=== PATIENT | female | born 2005 | race Caucasian/White ===

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

== ENCOUNTER 2025-09-26 14:28 | Outpatient (CLI) | payer BC, SELFPAY ==
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
--- OUTSIDE RECORDS SUMMARY | 2025-08-07 10:45 | XMS_ITS | Encounter Summary ---
Author Organization [facility] Address [address] [place] [address] Care Team Providers Care Relish Maker Name Role Phone Hugh Galicia Primary Care Provider Encounter Details Date Type Department Care Team (Late Contact Info) Description 08/07/2025 11:45 AM EDT Lab [facility] [address] [facility] [address] [place] [address] Routine general medical examination at a health care facility; Fatigue, unspecified type; Pain in both knees, unspecified chronicity; Family history of autoimmune disorder Social History Tobacco Use Types Packs/Day Years Used Date Smoking Tobacco: Never Smokeless Tobacco: Never Alcohol Use Standard Drinks/Week Comments Never 0 [...] on file documented as of this encounter Functional Status documented as of this encounter Plan of Treatment Upcoming Encounters Date Type Department Care Team (Late st Contact Info) Description 12/21/2025 10:00 AM EST Office Visit [facility]YN [address] [facility] [address] [place] [address] Kirkland, Amy, ROLL WINDER [address] [facility] [address] [place] [address] documented as of this encounter Procedures Procedure Name Priority Date/Time Associated Diagnosis Comments CBC WITH AUTO DIFFERENTIAL Routine 08/07/2025 11:54 AM EDT Routine general medical examination at a health care facility ALVERTO BY IFA, REFLEX TO TITER AND PATTERN Routine 08/07/2025 11:54 AM EDT Pain in both knees, unspecified chronicity Family history of autoimmune disorder SEDIMENTATION RATE Routine 08/07/2025 11 :54 AM EDT Pain in both knees, unspecified chronicity Family history of autoimmune disorder CBC AND DIFFERENTIAL Routine 08/07/2025 11:54 AM EDT Routine general medical examination at a health care facility RHEUMATOID FACTOR Routine 08/07/2025 11: 54 AM EDT Pain in both knees, unspecified chronicity Family history of autoimmune disorder C-REACTIVE PROTEIN Routine 08/07/2025 11 :54 AM EDT Pain in both knees, unspecified chronicity Family history of autoimmune disorder TSH Routine 08/07/2025 11:54 AM EDT Fatigue, unspecified type T4, FREE Routine 08/07/2025 11:54 AM EDT Fatigue, unspecified type LIPID PANEL Routine 08/07/2025 11:54 AM EDT Routine general medical examination at a health care facility COMPREHENSIVE METABOLIC PANEL Routine 08/07/2025 11:54 AM EDT Routine general medical examination at a health care facility documented in this encounter Results * (ABNORMAL) CBC Auto Differential (08/07/2025 11:54 AM EDT) [facility] WBC 6.87 3.40 - 10.80 10*3/mm3 08/08/2025 12:24 AM [facility] RBC 4.45 3.77 - 5.28 10*6/mm3 08/08/2025 12:24 AM [facility] Hemoglobin 13.0 12.0 - 15.9 g/dL 08/08/2025 12:24 AM [facility] Hematocrit 39.6 34.0 - 46.6 % 08/08/2025 12:24 AM [facility] MCV 89.0 79.0 - 97.0 fL 08/08/2025 12:24 AM [facility] MCH 29.2 26.6 - 33.0 pg 08/08/2025 12:24 AM [facility] MCHC 32.8 31.5 - 35.7 g/dL 08/08/2025 12:24 AM [facility] RDW 11.7(L) 12.3 - 15.4 % 08/08/2025 12:24 AM [facility] RDW-SD 38.0 37.0 - 54.0 fl 08/08/2025 12:24 AM [facility] MPV 11.1 6.0 - 12.0 fL 08/08/2025 12:24 AM [facility] Platelets 291 140 - 450 10*3/mm3 08/08/2025 12:24 AM [facility] Neutrophil % 54.4 42.7 - 76.0 % 08/08/2025 12:24 AM [facility] Lymphocyte % 31.0 19.6 - 45.3 % 08/08/2025 12:24 AM [facility] Monocyte % 11.6 5.0 - 12.0 % 08/08/2025 12:24 AM [facility] Eosinophil % 2.3 0.3 - 6.2 % 08/08/2025 12:24 AM [facility] Basophil % 0.4 0.0 - 1.5 % 08/08/2025 12:24 AM EDT [facility] Immature Grans % 0.3 0.0 - 0.5 % 08/08/2025 12:24 AM EDT [facility] Neutrophils, Absolute 3.73 1.70 - 7.00 10*3/mm3 08/08/2025 12:24 AM EDT [facility] Lymphocytes, Absolute 2.13 0.70 - 3.10 10*3/mm3 08/08/2025 12:24 AM EDT [facility] Monocytes, Absolute 0.80 0.10 - 0.90 10*3/mm3 08/08/2025 12:24 AM EDT [facility] Eosinophils, Absolute 0.16 0.00 - 0.40 10*3/mm3 08/08/2025 12:24 AM EDT [facility] Basophils, Absolute 0.03 0.00 - 0.20 10*3/mm3 08/08/2025 12:24 AM EDT [facility] Immature Grans, Absolute 0.02 0.00 - 0.05 10*3/mm3 08/08/2025 12:24 AM T [facility] nRBC 0.0 0.0 - 0.2 /100 WBC 08/08/2025 12:24 AM T [facility] Blood Structure of right upper limb / Unknown Venipuncture / Unknown 08/07/2025 11:54 AM EDT 08/07/2025 11:54 AM EDT us Hugh FLORES LAB BLOOD ORDERABLES Fi nal Result [facility]
[address] [place] [address], * C-reactive Protein (08/07/2025 11:54 AM EDT) C-Reactive Protein <0.30 0.00 - 0.50 mg/dL 08/08/2025 12:11 AM [facility] Blood Structure of right upper limb / Unknown Venipuncture / Unknown 08/07/2025 11:54 AM EDT 08/07/2025 11:54 AM EDT Hugh Cachorro [facility] LAB BLOOD ORDERABLES Fi nal Result Performing Organization Address City/[facility] Co de Phone Number [facility]
[address] [place] [address], * Sedimentation Rate (08/07/2025 11:54 AM EDT) Pathologist [facility] Sed Rate 7 0 - 20 mm/hr 08/08/2025 12:32 AM EDT [facility] Blood Structure of right upper limb / Unknown Venipuncture / Unknown 08/07/2025 11:54 AM EDT 08/07/2025 11:54 AM EDT Hugh Cachorro [facility] LAB BLOOD ORDERABLES Fi nal Result Performing Organization Address [facility] Co de Phone Number [facility]
[address] [place] [address], [place] [phone] * Rheumatoid Factor (08/07/2025 11:54 AM EDT) [facility] Rheumatoid Factor Quantitative <10.0 0.0 - 14.0 IU/mL 08/08/2025 12:11 AM EDT [facility] Blood Structure of right upper limb / Unknown Venipuncture / Unknown 08/07/2025 11:54 AM EDT 08/07/2025 11:54 AM EDT [facility] LAB BLOOD ORDERABLES Fi nal Result Performing Organization Address City/[facility] Co de Phone Number [facility]
[address] [place] [address], [place] [phone] * ALVERTO by IFA, Reflex to Titer [...] - 08/09/2025 11:11 AM EDT Performed at: 01 [address] [id number] Oiler Bander: Juan Oliveira PhD, Phone: [phone] us Hugh FLORES LAB BLOOD ORDERABLES Fi nal Result [facility] [address] [place] [id number], * Comprehensive Metabolic Panel (08/07/2025 11:54 AM EDT) Pathologist [facility] Glucose 79 65 - 99 mg/dL 08/08/2025 12:11 AM EDT [facility] BUN 11.0 6.0 - 20.0 mg/dL 08/08/2025 12:11 AM EDT [facility] Creatinine 0.81 0.57 - 1.00 mg/dL 08/08/2025 12:11 AM EDT [facility] Sodium 139 136 - 145 mmol/L 08/08/2025 12:11 AM EDT [facility] Potassium 4.2 3.5 - 5.2 mmol/L 08/08/2025 12:11 AM EDT [facility] Chloride 104 98 - 107 mmol/L 08/08/2025 12:11 AM EDT [facility] CO2 22.2 22.0 - 29.0 mmol/L 08/08/2025 12:11 AM EDT [facility] Calcium 9.5 8.6 - 10.5 mg/dL 08/08/2025 12:11 AM [facility] Total Protein 7.3 6.0 - 8.5 g/dL 08/08/2025 12:11 AM [facility] Albumin 4.4 3.5 - 5.2 g/dL 08/08/2025 12:11 AM [facility] ALT (SGPT) 19 1 - 33 U/L 08/08/2025 12:11 AM [facility] AST (SGOT) 20 1 - 32 U/L 08/08/2025 12:11 AM [facility] Alkaline Phosphatase 100 39 - 117 U/L 08/08/2025 12:11 AM [facility] Total Bilirubin 0.4 0.0 - 1.2 mg/dL 08/08/2025 12:11 AM [facility] Globulin 2.9 gm/dL 08/08/2025 12:11 AM [facility] A/G Ratio 1.5 g/dL 08/08/2025 12:11 AM [facility] BUN/Creatinine Ratio 13.6 7.0 - 25.0 08/08/2025 12:11 AM [facility] Anion Gap 12.8 5.0 - 15.0 mmol/L 08/08/2025 12:11 AM [facility] eGFR 107.4 >60.0 mL/min/1.7 3 08/08/2025 12:11 AM [facility] Blood Structure of right upper limb / Unknown Venipuncture / Unknown 08/07/2025 11:54 AM EDT 08/07/2025 11:54 AM [facility] - 08/08/2025 12:11 AM [facility] GFR Categories in Chronic Kidney Disease (CKD) [...] not include race as a factor Hugh Ivory Grayson MA LAB BLOOD ORDERABLES Fi nal Result Performing Organization Address City/[facility]/ZIP Co de Phone Number [facility]
[address] [place] [address], * T4, Free (08/07/2025 11:54 AM EDT) Free T4 1.32 0.92 - 1.68 ng/dL 08/08/2025 12:13 AM EDT [facility] Blood Structure of right upper limb / Unknown Venipuncture / Unknown 08/07/2025 11:54 AM EDT 08/07/2025 11:54 AM EDT Hugh Ivory Galicia MA LAB BLOOD ORDERABLES Fi nal Result Performing Organization Address City/[facility]/ZIP Co de Phone Number [facility]
[address] [place] [address], * TSH (08/07/2025 11:54 AM EDT) TSH 1.110 0.270 - 4.200 uIU/mL 08/08/2025 12:13 AM EDT [facility] Blood Structure of right upper limb / Unknown Venipuncture / Unknown 08/07/2025 11:54 AM EDT 08/07/2025 11:54 AM EDT Hugh Ivory Galicia MA LAB BLOOD ORDERABLES Fi nal Result [facility]
[address] [place] [address], * Lipid Panel (08/07/2025 11:54 AM EDT) Total Cholesterol 147 0 - 200 mg/dL 08/08/2025 12:11 AM EDT [facility] Triglycerides 38 0 - 150 mg/dL 08/08/2025 12:11 AM EDT [facility] HDL Cholesterol 57 40 - 60 mg/dL 08/08/2025 12:11 AM EDT [facility] LDL Cholesterol 81 0 - 100 mg/dL 08/08/2025 12:11 AM EDT [facility] VLDL Cholesterol 9 5 - 40 mg/dL 08/08/2025 12:11 AM EDT [facility] LDL/HDL Ratio 1.45 08/08/2025 12:11 AM T [facility] Blood Structure of right upper limb / Unknown Venipuncture / Unknown 08/07/2025 11:54 AM EDT 08/07/2025 11:54 AM EDT Narrative [facility] - 08/08/2025 12:11 AM EDT Cholesterol [...] FLORES LAB BLOOD ORDERABLES Fi nal Result [facility]
[address] [place] [address], documented in this encounter Visit Diagnoses Diagnosis Routine general medical examination at a health care facility Fatigue, unspecified type Pain in both knees, unspecified chronicity Family history of autoimmune disorder documented in this encounter Care Teams Relish Maker Relationship Specialty Start Date End Date Hugh Galicia PA [address] [facility] [address] [place] [address] PCP - General Family Medicine 08/07/25 documented as of this encounter
--- OUTSIDE RECORDS SUMMARY | 2025-08-21 15:30 | XMS_ITS | Encounter Summary ---
Author Organization [facility] Address [address] [place] [address] Care Team Providers Care Hog Driver Name Role Phone Hugh Galicia Primary Care Provider Reason for Referral * Consultation (Routine) - Closed Specialty Diagnoses / Procedures Referred By Contact Referred To Contact Orthopedic Surgery Diagnoses Chronic pain of right knee Hugh Galicia PA [address] [facility] [address] [place] [address] Phone: tel: fax: Michael Roque MD [address] [facility] [address] [place] [address] Phone: tel: fax: Referral ID Status Reason Start Date Expiration Date V isits Requested Visits Authorized [id number] Closed Specialty Services Required 08/21/2025 11/20/2026 1 1 Reason for Visit * Reason Comments Anxiety Started Lexapro 5mg two weeks ago but stopped taking d/t side effects. She is open to trying another medication. Behavioral health is booked and they couldn't schedule her an appointment. 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 Encounter Details Date Type Department Care Team (Late st Contact Info) Description 08/21/2025 4:30 PM EDT Office Visit [facility] [address] [facility] [address] [place] [address] Hugh Galicia PA [address] [facility] [address] [place] [address] Anxiety (Primary Dx); Chronic pain of both knees; Menstrual disorder Social History Tobacco Use Types Packs/Day [...] Sign Reading Time Taken Comments Blood Pressure 118/76 08/21/2025 4:34 PM EDT Pulse 89 08/21/2025 4:34 PM EDT Temperature - - Respiratory Rate 14 08/21/2025 4:34 PM EDT Oxygen Saturation 100% 08/21/2025 4:34 PM EDT Inhaled Oxygen Concentration - - Weight 60.1 kg (132 lb 6.4 oz) 08/21/2025 4:34 PM EDT Height 154.9 cm (5' 0.98 ) 08/21/2025 4:34 PM ED T Body Mass Index 25.03 08/21/2025 4:34 PM EDT documented in this encounter Progress Notes * Hugh Galicia PA - 08/21/2025 4:30 PM EDT Latia Alvarez is a 19 y.o. female Anxiety (Started Lexapro 5mg two weeks ago but stopped taking d/t side effects. She is open to trying another medication. Behavioral health is booked and they couldn't schedule her an appointment. ) and Menorrhagia ([employer]OL[employer] appt isn't until December 21, 2025) History of Present Illness History of Present Illness The patient is a 19-year-old female who presents for follow-up of lab work, anxiety, and joint issues. She reports experiencing side effects from Lexapro, including a sensation of heat and itchiness in her chest. She has not previously tried Zoloft. The patient has a history of joint issues, particularly with her knees, which have been prone to subluxations of her kneecap. She was previously advised to undergo surgery due to shallow joints but declined as she was very young at the time. She reports frequent subluxation of her kneecap, especially in her left knee, and has learned to adjust her movements to prevent it from going out of place. She started her menstrual cycle yesterday and experienced vomiting. She has scheduled an appointment with a servicer at [facility], with the earliest available date being 08/2025. GYNECOLOGICAL HISTORY: - Last Menstrual Period: 08/20/2025 - Menstrual Pain: Yes The following portions of the patient's history were reviewed and updated as appropriate: allergies, current medications, past social history and problem list Review of Systems Constitutional: Positive for fatigue. Negative for unexpected weight change. Respiratory: Negative for cough, chest tightness and shortness of breath. Cardiovascular: Positive for chest pain. Negative for palpitations and leg swelling. Gastrointestinal: Negative for nausea. Skin: Negative for color change and rash. Neurological: Positive for headaches. Negative for dizziness, syncope and weakness. Objective Vitals: 08/21/25 1634 BP: 118/76 Pulse: 89 Resp: 14 SpO2: 100% Physical Exam Vitals and nursing note reviewed. Constitutional: General: She is not in acute distress. Appearance: Normal appearance. She is well-developed. She is not ill-appearing, toxic-appearing or diaphoretic. HENT: Head: Normocephalic and atraumatic. Right Ear: External ear normal. Left Ear: External ear normal. Eyes: Conjunctiva/sclera: Conjunctivae normal. Pupils: Pupils are equal, round, and reactive to light. Neck: Thyroid: No thyromegaly. Vascular: No carotid bruit or JVD. Cardiovascular: Rate and Rhythm: Normal rate and regular rhythm. Pulses: Normal pulses. Heart sounds: Normal heart sounds. No murmur heard. Pulmonary: Effort: Pulmonary effort is normal. No respiratory distress. Breath sounds: Normal breath sounds. Abdominal: General: Bowel sounds are normal. Palpations: Abdomen is soft. There is no mass. Tenderness: There is no abdominal tenderness. Musculoskeletal: General: No swelling. Normal range of motion. Cervical back: Normal range of motion and neck supple. Lymphadenopathy: Cervical: No cervical adenopathy. Skin: General: Skin is warm and dry. Findings: No lesion or rash. Neurological: Mental Status: She is alert and oriented to person, place, and time. Cranial Nerves: No cranial nerve deficit. Sensory: No sensory deficit. Motor: No weakness. Coordination: Coordination normal. Gait: Gait normal. Deep Tendon Reflexes: Reflexes are normal and symmetric. Psychiatric: Mood and Affect: Mood normal. Behavior: Behavior normal. Thought Content: Thought content normal. Judgment: Judgment normal. Physical Exam General: Pleasant, no acute distress Assessment & Plan Assessment & Plan 1. Anxiety: - She experienced side effects with Lexapro, including chest heat and itchiness. - Blood work results are normal, ruling out autoimmune disorders for now. - Anxiety symptoms may be contributing to her somatic complaints, though this is not certain. - A low dose of sertraline 25 mg will be initiated, with the option to increase the dosage if necessary. 2. Recurrent patellar subluxation: - She reports recurrent dislocations of her left kneecap, with the left knee being more affected than the right. - Referral to Dr. Roque, an internet specialist, will be made for further evaluation and potential testing. 3. Menstrual disorder: - She started her menstrual cycle yesterday and experienced vomiting. - She has scheduled an appointment with a servicer at [facility], with the earliest available date being 08/2025. - If she is unable to secure an appointment with a servicer at [facility], she will inform us so that we can expedite the process. Diagnoses and all orders for this visit: 1. Anxiety (Primary) 2. Chronic pain of both knees - Ambulatory Referral to Orthopedic Surgery 3. Menstrual disorder Other orders - sertraline (Zoloft) 25 MG tablet; Take 1 tablet by mouth Daily. Dispense: 30 tablet; Refill: 1 I spent 15 minutes in patient care: Reviewing records prior to the visit, examining the patient, entering orders and documentation Part of this note may be an electronic excellence coach/translation of spoken language to printed textusing the [employer] System. Patient or patient territory account representative verbalized consent for the use of Ambient Listening during the visit with MARK Casanova for chart documentation. 08/21/2025 16:26 EDT documented in this encounter Plan of Treatment Upcoming Encounters Date Type Department Care Team (Late st Contact Info) Description 12/21/2025 10:00 AM EST Office Visit [facility] [address] [facility] [address] [place] [address] Delia Kirkland APRN [address] [place] [address] Scheduled Referrals Name Type Priority Associated Diagnoses Order Schedule Ambulatory Referral to Orthopedic Surgery Outpatient Referral Routine Chronic pain of both knees Ordered: 08/21/2025 documented as of this encounter Visit Diagnoses Diagnosis Anxiety- Primary Anxiety state, unspecified Chronic pain of both knees Menstrual disorder documented in this encounter Care Teams Hog Driver Relationship Specialty Start Date End Date Hugh Galicia PA [address] [facility] [address] [place] [address] PCP - General Family Medicine 08/07/25 documented as of this encounter
--- OUTSIDE RECORDS SUMMARY | 2025-08-30 08:30 | XMS_ITS | Encounter Summary ---
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 Located at [address] [place] [address] in [place]. You can contact them at . Reason for Visit * Reason Comments Pain Pain * Consultation (Routine) - Closed Specialty Diagnoses / Procedures Referred By Contact Referred To Contact Orthopedic Surgery Diagnoses Chronic pain of right knee Hugh Galicia PA [address] [facility] [address] [place] [address] Phone: tel: fax: Michael Roque MD [address] [facility] [address] [place] [address] Phone: tel: fax: Referral ID Status Reason Start Date Expiration Date V isits Requested Visits Authorized [id number] Closed Specialty Services Required 08/21/2025 11/20/2026 1 1 Encounter Details Date Type Department Care Team (Late st Contact Info) Description 08/30/2025 8:30 AM EST Office Visit [facility]TH[facility] & SPORTS MEDICINE [address] [facility] [address] [place] [address] Michael Roque MD [address] [facility] [address] [place], [place] [id number] Pain in both knees, unspecified chronicity (Primary Dx); Dysplasia of trochlea of femur; 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 Social History Tobacco Use Types Packs/Day Years [...] Sign Reading Time Taken Comments Blood Pressure 132/64 08/30/2025 8:27 AM EST Pulse - - Temperature - - Respiratory Rate - - Oxygen Saturation - - Inhaled Oxygen Concentration - - Weight 58.3 kg (128 lb 8 oz) 08/30/2025 8:27 AM EST Height 160 cm (5' 3 ) 08/30/2025 8:27 AM EST Body Mass Index 22.76 08/30/2025 8:27 AM EST documented in this encounter Progress Notes * Michael Roque MD - 08/30/2025 8:30 AM EST [facility] Office Visit Office Visit Date: 08/30/2025 Patient Name: Adilene Alvarez Date of : 2005 Referring Physician: Hugh Galicia PA Chief Complaint: Chief Complaint Patient presents with Right Knee - Pain Left Knee - Pain History of Present Illness: Adilene Alvarez is a 19 y.o. female who presents with bilateral knee pain for 4 year(s). Onset playing sports. Pain is localized to the entire knee (globally) and is a 6/10 on the pain scale. Pain is described as aching, throbbing, and stabbing. Associated symptoms include pain, swelling, popping, stiffness, and giving way/buckling. The pain is worse with walking, standing, climbing stairs, sleeping, and lying on affected side; heat, pain medication and/or NSAID, and elevating the extremity make it better. Previous treatments have included: bracing, NSAIDS, and physical therapy since symptom onset. Although some transient relief was reported with these interventions, these conservative measures have failed and symptoms have persisted. The patient is limited in daily activities and has had asignificant decrease in quality of life as a result. She denies fevers, chills, or constitutional symptoms. Subjective Review of Systems: Review of Systems Constitutional: Negative for chills, fever, unexpected weight gain and unexpected weight loss. HENT: Negative for congestion, postnasal drip and rhinorrhea. Eyes: Negative for blurred vision. Respiratory: Negative for shortness of breath. Cardiovascular: Negative for leg swelling. Gastrointestinal: Negative for abdominal pain, nausea and vomiting. Genitourinary: Negative for difficulty urinating. Musculoskeletal: Positive for arthralgias. Negative for gait problem, joint swelling and myalgias. Skin: Negative for skin lesions and wound. Neurological: Negative for dizziness, weakness, light-headedness and numbness. Hematological: Does not bruise/bleed easily. Psychiatric/Behavioral: Negative for depressed mood. I have reviewed the following portions of the patient's history:History of Present Illness and review of systems. Past Medical History: Past Medical History: Diagnosis Date Dislocation, shoulder Knee sprain Low back strain Stress fracture Past Surgical History: No past surgical history on file. Family History: Family History Problem Relation Name Age of Onset Depression Mother Yakelin santo Hypertension Mother Yakelin santo Anxiety disorder Mother Yakelin santo 20 Mental illness Mother Yakelin santo Depression Father Kenny Alvarez Diabetes Father Kenny Alvarez Anxiety disorder Father Kenny Alvarez 40 Arthritis Father Kenny Alvarez 16 Mental illness Father Kenny Alvarez Migraine Father Kenny Alvarez Hypertension Brother Alex Voss Hyperlipidemia Brother Alex Voss Anxiety disorder Brother Alex Voss 16 Asthma Brother [place] Antonio 1 Hypertension Brother Domenic Voss Asthma Brother Domenic Voss 2 Diabetes Maternal Grandmother Leigh Ann Santo Hypertension Maternal Grandmother Leigh Ann Santo Hyperlipidemia Maternal Grandmother Leigh Ann Santo Arthritis Maternal Grandmother Leigh Ann Santo Cancer Maternal Grandfather Sarath Santo Hypertension Maternal Grandfather Sarath Santo Stroke Maternal Grandfather Sarath Santo Thyroid disease Maternal Grandfather Sarath Santo Hyperlipidemia Maternal Grandfather Sarath Santo Arthritis Maternal Grandfather Sarath Santo Hearing loss Maternal Grandfather Sarath Santo Vision loss Maternal Grandfather Sarath Santo Cancer Paternal Grandmother Ragini Alvarez Diabetes Paternal Grandmother Ragini Alvarez Arthritis Paternal Grandmother Ragini Alvarez Vision loss Paternal Grandmother Ragini Alvarez Social History: Social History Socioeconomic History Marital status: Single Tobacco Use Smoking status: Never Smokeless tobacco: Never Vaping Use Vaping status: Never Used Substance and Sexual Activity Alcohol use: Never Drug use: Never Sexual activity: Yes Partners: Male Medications: Current Outpatient Medications: sertraline (Zoloft) 25 MG tablet, Take 1 tablet by mouth Daily., Disp: 30 tablet, Rfl: 1 Allergies: Allergies Allergen Reactions Lexapro [Escitalopram] Other (See Comments) Chest felt weird, itchy, didn't feel right I reviewed the patient's chief complaint, history of present illness, review of systems, past medical history, surgical history, family history, social history, medications and allergy list. Objective Vital Signs: Vitals: 08/30/25 0827 BP: 132/64 Weight: 58.3 kg (128 lb 8 oz) Height: 160 cm (63 ) Body mass index is 22.76 kg/m??. Pediatric BMI = 62 %ile (Z= 0.30) based on CDC (Girls, 2-20 Years) BMI-for-age based on BMI available on 08/30/2025.. BMI is >= 25 and <30. (Overweight) The following options were offered after discussion;: exercise counseling/recommendations and nutrition counseling/recommendations Ortho Exam: Gait and Station: Appearance: normal gait, no limp, and ambulates with no assitive devices. Cardiovascular System: Arterial Pulses Right: dorsalis pedis normal. Arterial Pulses Left: dorsalispedis normal. Edema Right: no edema. Edema Left: no edema. Varicosities Right: capillary refill test normal. Varicosities Left: capillary refill test normal. Lymph Nodes: Inspection/Palpation Right: no popliteal LAD. Inspection/Palpation Left: no popliteal LAD. Knees: Inspection Right: no deformity, induration, warmth, erythema, or swelling and normal axial alignment. Inspection Left: no deformity, induration, warmth, erythema, or swelling and normal axial alignment. Bony Palpation Right: tenderness of the lateral patellar facet, the medial patellar facet, and the medial joint line. Soft Tissue Palpation Right: no tenderness of the quadriceps tendon or the medial collateral ligament and tenderness of the medial patellar retinaculum; tender over medialsyovium. Soft Tissue Palpation Left: no tenderness of the quadriceps tendon. Active Range of MotionRight: no crepitus or pain with motion and normal, flexion normal, and extension normal. Active Range of Motion Left: no crepitus or pain with motion and normal, flexion normal, and extension normal.Stability Right: no laxity, subluxation, or ligamentous instability and pivot shift test negative and Annalise test negative. Stability Left: no laxity, subluxation, or ligamentous instability and pivot shift test negative and Annalise test negative. Special Tests Right: Gagandeep's test negative and Apley's compression test negative. Special Tests Left: Gagandeep's test negative and Apley's compression test negative. Strength Right: no hamstring weakness and quadriceps weakness. Strength Left: no hamstring weakness or quadriceps weakness. Extensor Mechanism:: Extensor Mechanism Right: patellar tracking apprehension and passive subluxation (J tracking), patella posture Q angle extended 15 and apprehension positive, and prepatellar normal. Extensor Mechanism Left: prepatellar normal and apprehension negative. Skin: Right Lower Extremity: normal. Left Lower Extremity: normal. Neurologic: Sensation on the Right: L2 normal, L3 normal, L4 normal, L5 normal, and S1 normal. Sensation on the Left: L2 normal, L3 normal, L4 normal, L5 normal, and S1 normal. Results Review: Imaging Results (Last 24 Hours) Procedure Component Value Units Date/Time XR Knee 3 View Bilateral [[id number]] Resulted: 08/30/25900 Updated: 08/30/25900 Narrative: Indication: pain. Views: Weightbearing views of the knee are submitted. Impression: There is no fracture subluxation or dislocation. The patella sits normally in the trochlea. There are no acute findings. Shallow trochlear groove, slight patella nba. Comparison: None. Procedures Assessment / Plan Assessment/Plan: Diagnoses and all orders for this visit: 1. Pain in both knees, unspecified chronicity (Primary) - XR Knee 3 View Bilateral 2. Dysplasia of trochlea of femur - Ambulatory Referral to Physical Therapy for Evaluation & Treatment 3. 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 - Ambulatory Referral to Physical Therapy for Evaluation & Treatment Other orders - Cancel: XR Knee 3+ View With [place] Right Plan: Pain to the anterior knee with multiple instances of patellar instability on the right. No recent injury history though she has significant disability and is unable to exercise as desired. Pain now into the hips and low back as well. Radiographs of the knees shows trochlear dysplasia but no active dislocation. No acute osseous abnormality. We will treat the instability and dysplasia with a referral to physical therapy. Treatment should include High taping. She can take Tylenol or [id number] agents for pain control. Follow-up in 3 months. Previous studies reviewed: Office visit 08/21/2025. Rheumatoid factor X 1425. CRP 08/07/2025. Follow Up: Return in about 3 months (around 11/30/2025) for Recheck. Robert Roque MD [facility] documented in this encounter Plan of Treatment Upcoming Encounters Date Type Department Care Team (Late st Contact Info) Description 12/21/2025 10:00 AM EST Office Visit [facility] [address] [facility] [address] [place] [id number] Delia Kirkland, ORDER FILLER [address] [facility] [address] [place] [address] Scheduled Referrals Name Type Priority Associated Diagnoses Orde r Schedule Ambulatory Referral to Physical Therapy for Evaluation & Treatment Outpatient Referral Routine 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 Views: Weightbearing views of the knee are submitted. Impression: There is no fracture subluxation or dislocation. The patella sits normally in the trochlea. There are no acute findings. Shallow trochlear groove, slight patella nba. Comparison: None. 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
--- OUTSIDE RECORDS SUMMARY | 2025-08-30 08:45 | XMS_ITS | Encounter Summary ---
Author Organization [facility] Address [address] [place] [address] Care Team Providers Care Machine Tool Dresser Name Role Phone Hugh Galicia Primary Care Provider Encounter Details Date Type Department Care Team (Late st Contact Info) Description 08/30/2025 8:45 AM EST Ancillary Procedure [facility] [address] [facility] [address] [place] [address] Social History Tobacco Use Types Packs/Day Years [...] on file documented as of this encounter Plan of Treatment Upcoming Encounters Date Type Department Care Team (Late st Contact Info) Description 12/21/2025 10:00 AM EST Office Visit [facility] [address] [facility] [address] [place] [address] Delia Kirkland APRN [address] [facility] [address] [place] [address] documented as of this encounter Procedures Procedure Name Priority Date/Time Associated Diagnosis Comments XR KNEE 3 VW BILATERAL Routine 08/30/2025 8:44 AM EST Pain in both knees, unspecified chronicity documented in this encounter Results * XR Knee 3 View Bilateral (08/30/2025 8:44 AM EST) Anatomical Region Laterality Modality Lower Extremities, Knee Bilateral [facility] Narrative 08/30/2025 9:01 AM EST Indication: pain. Views: Weightbearing views of the knee are submitted. Impression: There is no fracture subluxation or dislocation. The patella sits normally in the trochlea. There are no acute findings. Shallow trochlear groove, slight patella nba. Comparison: None. Mihcael Roque MD [facility] Final Result documented in this encounter Visit Diagnoses Not on filedocumented in this encounter Care Teams Machine Tool Dresser Relationship Specialty Start Date End Date Hugh Galicia PA [address] [facility] [address] [place] [address] PCP - General Family Medicine 08/07/25 documented as of this encounter
--- OUTSIDE RECORDS SUMMARY | 2025-09-03 15:38 | XMS_ITS | Encounter Summary ---
Author Organization [facility] Address [address] [place] [address] Care Team Providers Care Specialty Molder Name Role Phone Hugh Galicia Primary Care Provider Reason for Referral * Consultation (Routine) - Closed Specialty Diagnoses / Procedures Referred By Contac t Referred To Contact Cardiology Diagnoses Palpitations Chest pain, unspecified type Procedures ID OFFICE/OUTPATIENT NEW MODERATE MDM 45 MINUTES Kenny Christianson MD [address] [place] [address] Phone: tel: fax: [facility] [address] [facility] [address] [place] [address] Phone: tel: fax: Referral ID Status Reason Start Date Expiration Date V isits Requested Visits Authorized [id number] Closed Specialty Services Required 09/03/2025 12/03/2026 1 1 Reason for Visit * Reason Comments Chest Pain Encounter Details Date Type Department Care Team (Late st Contact Info) Description 09/03/2025 3:38 PM EST - 09/03/2025 4:00 PM EST Emergency [facility] EMERGENCY DEPARTMENT [address] [place] [address] Kenny Christianson MD [address] [place] [address] Palpitations (Primary Dx); Chest pain, unspecified type Discharge Disposition: Home or Self Care Social History Tobacco Use Types Packs/Day Years [...] Sign Reading Time Taken Comments Blood Pressure 115/80 09/03/2025 3:58 PM EST Pulse 72 09/03/2025 3:58 PM EST Temperature 36.9 C (98.4 F) 09/03/2025 2:19 PM EST Respiratory Rate 16 09/03/2025 3:58 PM EST Oxygen Saturation 100% 09/03/2025 3:58 PM EST Inhaled Oxygen Concentration - - Weight 54.4 kg (120 lb) 09/03/2025 2:17 PM EST Height 160 cm (5' 3 ) 09/03/2025 2:17 PM EST Body Mass Index 21.26 09/03/2025 2:17 PM EST documented in this encounter Functional Status * Calculated C-SSRS Risk Score (Lifetime/Recent) Answer Date of Assessment Author No Risk Indicated 09/03/2025 2:20 PM EST Margaret Fields RN * [place] Suicide Severity Rating Scale (Screener/Recent Self-Report) Question Answer Date of Assessment Author 1. Wish to be (Past 1 Month) No 025 2:20 PM EST Margaret Fields RN 2. Non-Specific Active Suici kasey Thoughts (Past 1 Month) No 09/03/2025 2:20 PM EST Tova Fields RN 6. Suicidal Behavior (Lifetime) No 2:20 PM EST Margaret Fields RN documented as of this encounter Discharge Instructions * Attachments The following attachments cannot be sent through Care Everywhere. * Nonspecific Chest Pain Adult (Nauruan) * Palpitations [id number] (Nauruan) documented in this encounter Medications at Time of Discharge sertraline (Zoloft) 25 MG tablet Take 1 tablet by mouth Daily. 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 09/03/2025 17:08 EST Review of prior external notes (non-ED) -and- Review of prior external test results outside of thisencounter: HPI: Historians: Patient Adilene Alvarez is a 19 y.o. female who presents for evaluation of chest pain and palpitations. Of note, the patient is otherwise healthy. She has no risk factors for coronary artery disease. 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 She notes mild dyspnea. No vomiting. No diaphoresis. She is unsure as to what may have triggered her symptoms. Given her ongoing symptoms, she was concerned about a potential cardiac etiology and came here for further evaluation and treatment. Review of Systems Respiratory: Positive for chest tightness and shortness of breath. Cardiovascular: Positive for chest pain and palpitations. All other systems reviewed and are negative. PAST MEDICAL HISTORY Past Medical History: Diagnosis Date Dislocation, shoulder Knee sprain Low back strain Stress fracture PAST SURGICAL HISTORY No past surgical history on file. FAMILY HISTORY Family History Problem Relation Name Age of [...] disorder Brother Alex Voss 16 Asthma Brother Job Alvarez 1 Hypertension Brother Domenic Voss Asthma Brother Domenic Vazquezer 2 Diabetes Maternal Grandmother Leigh Ann Santo [...] Alvarez Vision loss Paternal Grandmother Ragini Alvarez SOCIAL HISTORY Social History Socioeconomic History Marital status: Single Tobacco Use Smoking status: Never Smokeless tobacco: Never Vaping Use Vaping status: Never Used Substance and Sexual Activity Alcohol use: Never Drug use: Never Sexual activity: Yes Partners: Male ALLERGIES Allergies Allergen Reactions Lexapro [Escitalopram] Other (See Comments) Chest felt weird, itchy, didn't feel right PHYSICAL EXAM I have reviewed the triage vital signs and nursing notes. Physical Exam Vitals and nursing note reviewed. Constitutional: General: She is not in acute distress. Appearance: She is well-developed. She is not diaphoretic. Comments: Well-appearing female in no acute distress HENT: Head: Normocephalic and atraumatic. Eyes: Pupils: Pupils are equal, round, and reactive to light. Cardiovascular: Rate and Rhythm: Normal rate and regular rhythm. Heart sounds: Normal heart sounds. No murmur heard. No friction rub. No gallop. Pulmonary: Effort: Pulmonary effort is normal. No respiratory distress. Breath sounds: Normal breath sounds. No wheezing or rales. Abdominal: General: Bowel sounds are normal. There is no distension. Palpations: Abdomen is soft. There is no mass. Tenderness: There is no abdominal tenderness. There is no guarding or rebound. Musculoskeletal: General: Normal range of motion. Cervical back: Neck supple. Skin: General: Skin is warm and dry. Findings: No erythema or rash. Neurological: Mental Status: She is alert and oriented to person, place, and time. Psychiatric: Mood and Affect: Mood normal. Thought Content: Thought content normal. Judgment: Judgment normal. Results LAB RESULTS Labs from Hospital Encounter 09/03/25 High Sensitivity Troponin T Specimen: Blood Result Value Ref Range HS Troponin T <6 <14 ng/L Comprehensive Metabolic Panel Specimen: Blood Result Value Ref Range Glucose 90 65 - 99 mg/dL BUN 9.5 6.0 - 20.0 mg/dL Creatinine 0.63 0.57 - 1.00 mg/dL Sodium 140 136 - 145 mmol/L Potassium 4.1 3.5 - 5.2 mmol/L Chloride 103 98 - 107 mmol/L CO2 26.6 22.0 - 29.0 mmol/L Calcium 9.5 8.6 - 10.5 mg/dL Total Protein 7.9 6.0 - 8.5 g/dL Albumin 5.0 3.5 - 5.2 g/dL ALT (SGPT) 27 1 - 33 U/L AST (SGOT) 19 1 - 32 U/L Alkaline Phosphatase 101 39 - 117 U/L Total Bilirubin 0.4 0.0 - 1.2 mg/dL Globulin 2.9 gm/dL A/G Ratio 1.7 g/dL BUN/Creatinine Ratio 15.1 7.0 - 25.0 Anion Gap 10.4 5.0 - 15.0 mmol/L eGFR 131.2 >60.0 mL/min/1.73 Lipase Specimen: Blood Result Value Ref Range Lipase 20 13 - 60 U/L BNP Specimen: Blood Result Value Ref Range proBNP <36.0 0.0 - 450.0 pg/mL CBC Auto Differential Specimen: Blood Result Value Ref Range WBC 9.08 3.40 - 10.80 10*3/mm3 RBC 4.76 3.77 - 5.28 10*6/mm3 Hemoglobin 13.7 12.0 - 15.9 g/dL Hematocrit 42.5 34.0 - 46.6 % MCV 89.3 79.0 - 97.0 fL MCH 28.8 26.6 - 33.0 pg MCHC 32.2 31.5 - 35.7 g/dL RDW 12.6 12.3 - 15.4 % RDW-SD 41.3 37.0 - 54.0 fl MPV 10.6 6.0 - 12.0 fL Platelets 320 140 - 450 10*3/mm3 Neutrophil % 60.9 42.7 - 76.0 % Lymphocyte % 28.3 19.6 - 45.3 % Monocyte % 8.7 5.0 - 12.0 % Eosinophil % 1.2 0.3 - 6.2 % Basophil % 0.3 0.0 - 1.5 % Immature Grans % 0.6 (H) 0.0 - 0.5 % Neutrophils, Absolute 5.53 1.70 - 7.00 10*3/mm3 Lymphocytes, Absolute 2.57 0.70 - 3.10 10*3/mm3 Monocytes, Absolute 0.79 0.10 - 0.90 10*3/mm3 Eosinophils, Absolute 0.11 0.00 - 0.40 10*3/mm3 Basophils, Absolute 0.03 0.00 - 0.20 10*3/mm3 Immature Grans, Absolute 0.05 0.00 - 0.05 10*3/mm3 nRBC 0.0 0.0 - 0.2 /100 WBC D-dimer, Quantitative Specimen: Blood Result Value Ref Range D-Dimer, Quantitative <0.27 0.00 - 0.50 MCGFEU/mL Green Top (Gel) Result Value Ref Range Extra Tube Hold for add-ons. Lavender Top Result Value Ref Range Extra Tube hold for add-on Gold Top - SST Result Value Ref Range Extra Tube Hold for add-ons. [place] Top Result Value Ref Range Extra Tube Hold for add-ons. Light Blue Top Result Value Ref Range Extra Tube Hold for add-ons. RADIOLOGY XR Chest 1 View Result Date: 09/03/2025 XR CHEST 1 VW Date of Exam: 09/03/2025 2:21 PM EST Indication: Chest Pain Triage Protocol Comparison: None available. FINDINGS: No definite focal or diffuse pulmonary infiltrate is identified. No pneumothorax or significant pleural effusion. Heart size and mediastinal contour appear within normal limits. No definite osseous abnormality is seen on this limited single view. Impression: No radiographic findings of acute cardiopulmonary abnormality. Electronically Signed: Govind Bergeron 09/03/2025 2:32 PM EST Workstation ID: [id number] ORDERS PLACED DURING THIS VISIT: Orders Placed This Encounter Procedures XR Chest 1 View [place] Draw High Sensitivity Troponin T Comprehensive Metabolic Panel Lipase BNP CBC Auto Differential D-dimer, Quantitative Ambulatory Referral to [facility] - Chest Pain Clinic NPO Diet NPO Type: Strict NPO Undress & Gown Continuous Pulse Oximetry Oxygen Therapy- Nasal Cannula; Titrate 1-6 LPM Per SpO2; 90 - 95% ECG 12 Lead ED Triage Standing Order; Chest Pain Insert Peripheral IV CBC & Differential Green Top (Gel) Lavender Top Gold Top - SST [place] Top Light Blue Top MEDICATIONS GIVEN IN ER Medications sodium chloride 0.9 % flush 10 mL (has no administration in time range) aspirin chewable tablet 324 mg (324 mg Oral Given 09/03/25 1434) ketorolac (TORADOL) injection 15 mg (15 mg Intravenous Given 09/03/25 1436) PROCEDURES Procedures PROGRESS, DATA ANALYSIS, CONSULTS, AND MEDICAL DECISION MAKING All labs, radiology studies, and EKG's have been independently viewed and interpreted by me. Discussion below represents my analysis of pertinent findings related to patient's condition, differentialdiagnosis, treatment plan and final disposition. Differential Diagnoses include but is not limited to: Musculoskeletal chest pain, pleurisy, arrhythmia, pulmonary embolism, ACS. ED Scoring Tools: Recent Results (from the past 24 hours) ECG 12 Lead Chest Pain Collection Time: 09/03/25 2:24 PM Result Value Ref Range QT Interval 384 ms QTC Interval 434 ms High Sensitivity Troponin T Collection Time: 09/03/25 2:38 PM Specimen: Blood Result Value Ref Range HS Troponin T <6 <14 ng/L Comprehensive Metabolic Panel Collection Time: 09/03/25 2:38 PM Specimen: Blood Result Value Ref Range Glucose 90 65 - 99 mg/dL BUN 9.5 6.0 - 20.0 mg/dL Creatinine 0.63 0.57 - 1.00 mg/dL Sodium 140 136 - 145 mmol/L Potassium 4.1 3.5 - 5.2 mmol/L Chloride 103 98 - 107 mmol/L CO2 26.6 22.0 - 29.0 mmol/L Calcium 9.5 8.6 - 10.5 mg/dL Total Protein 7.9 6.0 - 8.5 g/dL Albumin 5.0 3.5 - 5.2 g/dL ALT (SGPT) 27 1 - 33 U/L AST (SGOT) 19 1 - 32 U/L Alkaline Phosphatase 101 39 - 117 U/L Total Bilirubin 0.4 0.0 - 1.2 mg/dL Globulin 2.9 gm/dL A/G Ratio 1.7 g/dL BUN/Creatinine Ratio 15.1 7.0 - 25.0 Anion Gap 10.4 5.0 - 15.0 mmol/L eGFR 131.2 >60.0 mL/min/1.73 Lipase Collection Time: 09/03/25 2:38 PM Specimen: Blood Result Value Ref Range Lipase 20 13 - 60 U/L BNP Collection Time: 09/03/25 2:38 PM Specimen: Blood Result Value Ref Range proBNP <36.0 0.0 - 450.0 pg/mL Green Top (Gel) Collection Time: 09/03/25 2:38 PM Result Value Ref Range Extra Tube Hold for add-ons. Lavender Top Collection Time: 09/03/25 2:38 PM Result Value Ref Range Extra Tube hold for add-on Gold Top - SST Collection Time: 09/03/25 2:38 PM Result Value Ref Range Extra Tube Hold for add-ons. [place] Top Collection Time: 09/03/25 2:38 PM Result Value Ref Range Extra Tube Hold for add-ons. Light Blue Top Collection Time: 09/03/25 2:38 PM Result Value Ref Range Extra Tube Hold for add-ons. CBC Auto Differential Collection Time: 09/03/25 2:38 PM Specimen: Blood Result Value Ref Range WBC 9.08 3.40 - 10.80 10*3/mm3 RBC 4.76 3.77 - 5.28 10*6/mm3 Hemoglobin 13.7 12.0 - 15.9 g/dL Hematocrit 42.5 34.0 - 46.6 % MCV 89.3 79.0 - 97.0 fL MCH 28.8 26.6 - 33.0 pg MCHC 32.2 31.5 - 35.7 g/dL RDW 12.6 12.3 - 15.4 % RDW-SD 41.3 37.0 - 54.0 fl MPV 10.6 6.0 - 12.0 fL Platelets 320 140 - 450 10*3/mm3 Neutrophil % 60.9 42.7 - 76.0 % Lymphocyte % 28.3 19.6 - 45.3 % Monocyte % 8.7 5.0 - 12.0 % Eosinophil % 1.2 0.3 - 6.2 % Basophil % 0.3 0.0 - 1.5 % Immature Grans % 0.6 (H) 0.0 - 0.5 % Neutrophils, Absolute 5.53 1.70 - 7.00 10*3/mm3 Lymphocytes, Absolute 2.57 0.70 - 3.10 10*3/mm3 Monocytes, Absolute 0.79 0.10 - 0.90 10*3/mm3 Eosinophils, Absolute 0.11 0.00 - 0.40 10*3/mm3 Basophils, Absolute 0.03 0.00 - 0.20 10*3/mm3 Immature Grans, Absolute 0.05 0.00 - 0.05 10*3/mm3 nRBC 0.0 0.0 - 0.2 /100 WBC D-dimer, Quantitative Collection Time: 09/03/25 2:38 PM Specimen: Blood Result Value Ref Range D-Dimer, Quantitative <0.27 0.00 - 0.50 MCGFEU/mL Note: In addition to lab results from this visit, the labs listed above may include labs taken at another facility or during a different encounter within the last 24 hours. Please correlate lab timeswith ED admission and discharge times for further clarification of the services performed during this visit. XR Chest 1 View Final Result No radiographic findings of acute cardiopulmonary abnormality. Electronically Signed: Govind Bergeron 09/03/2025 2:32 PM EST Workstation ID: [id number] Vitals: 09/03/25 1417 09/03/25 1418 09/03/25 1419 09/03/25 1558 BP: 116/82 115/80 BP Location: Right arm Patient Position: Sitting Pulse: 75 72 Resp: 18 16 Temp: 98.4 ??F (36.9 ??C) TempSrc: Oral SpO2: 100% 100% Weight: 54.4 kg (120 lb) Height: 160 cm (63 ) Medications sodium chloride 0.9 % flush 10 mL (has no administration in time range) aspirin chewable tablet 324 mg (324 mg Oral Given 09/03/25 1434) ketorolac (TORADOL) injection 15 mg (15 mg Intravenous Given 09/03/25 1436) ECG/EMG Results (last 24 hours) Procedure Component Value Units Date/Time ECG 12 Lead Chest Pain [[id number]] Collected: 09/03/25 142 Updated: 09/03/25 145 QT Interval 384 ms QTC Interval 434 ms Narrative: Test Reason : Chest Pain Blood Pressure : */* mmHG Vent. Rate : 77 BPM Atrial Rate : 77 BPM P-R Int : 134 ms QRS Dur : 88 ms QT Int : 384 ms P-R-T Axes : 70 63 39 degrees QTcB Int : 434 ms Normal sinus rhythm with sinus arrhythmia Normal ECG No previous ECGs available Confirmed by MD Christianson Michael ([id number]) on 09/03/2025 2:57:34 PM Referred By: MEKHI' Confirmed By: Eloy Christianson MD ECG 12 Lead Chest Pain Final Result Test Reason : Chest Pain Blood Pressure : */* mmHG Vent. Rate : 77 BPM Atrial Rate : 77 BPM P-R Int : 134 ms QRS Dur : 88 ms QT Int : 384 ms P-R-T Axes : 70 63 39 degrees QTcB Int : 434 ms Normal sinus rhythm with sinus arrhythmia Normal ECG No previous ECGs available Confirmed by MD Christianson Michael ([id number]) on 09/03/2025 2:57:34 PM Referred By: MEHKI' Confirmed By: Eloy Christianson MD ED Course: ED Course as of 09/03/25 170WedSep 03, 2025 1429 19-year-old female presents for evaluation of chest pain. Of note, the patient has no risk factors for coronary artery disease. She works at a [employer] and tells me that about 4 hours before come tot emergency department she began experiencing sharp/stabbing left-sided chest pains that have bothered her intermittently since that time. She notes intermittent palpitations over the same span. [DD] 1431 On exam, the patient looks well. Initial EKG interpreted independently by me revealed normal sinus rhythm with sinus arrhythmia and a heart rate of [address] segments suggestive of or concerning for ischemia. Differential diagnosis is quite broad. We will obtain labs and imaging, and we will reassess following initial interventions. [DD] 1437 I personally and independently viewed the patient's x-ray images myself, and I am in agreementwith the radiologist's reading for final interpretation, particularly there is no evidence of underlying pneumonia or pneumothorax present. [DD] 1533 Labs interpreted independently by me are bland/unrevealing. [DD] 1537 Low risk Wells and D-dimer is negative. [DD] 1542 Upon reevaluation, the patient looks and feels well. [DD] 1543 Repeat troponin/EKG negative/unchanged. Doubt ACS, PE, dissection, or emergent cardiothoracic process at this time based on exam, history, clinical presentation, gestalt, objective findings in the ED, time course of symptoms, and risk stratification. HEART score of 1. The patient will follow up with the chest pain clinic within the next 72 hours for further outpatient work-up and evaluation.Agreeable with plan and given appropriate strict return precautions. [DD] ED Course User Index [DD] Kenny Christianson MD OF 17:08 EST VITALS: BP - 115/80 HR - 72 TEMP - 98.4 ??F (36.9 ??C) (Oral) O2 SATS - 100% DIAGNOSIS Final diagnoses: Palpitations Chest pain, unspecified type DISPOSITION ED Disposition ED Disposition Discharge Condition Stable Comment -- Please note that portions of this note were completed with a voice recognition program. Note Disclaimer: At [facility], we believe that sharing information builds trust and better relationships. You are receiving this note because you recently visited [facility]. It is possible you will see health information before a provider has talked with you about it. This kind of information can be easy to misunderstand. To help you fully understand what it means for your health, we urge you to discuss this note with your provider. Kenny Christianson MD 09/03/25 1709 documented in this encounter Plan of Treatment Upcoming Encounters Date Type Department Care Team (Late st Contact Info) Description 12/21/2025 10:00 AM EST Office Visit [facility] OBGYN [address] [facility] [address] [place] [phone] Delia Kirkland APRN [address] [facility] [address] [place] [address] Scheduled Referrals Name Type Priority Associated Diagnoses Orde r Schedule Ambulatory Referral to [facility] - Chest Pain Clinic Outpatient Referral Routine Palpitations Chest pain, unspecified type Ordered: 09/03/2025 documented as of this encounter Procedures Procedure Name Priority Date/Time Associated Diagnosis Comments [place] TOP STAT 09/03/2025 2:38 PM EST GOLD TOP - SST STAT 09/03/2025 2:38 PM EST DK GREEN TOP STAT 09/03/2025 2:38 PM EST CBC WITH AUTO DIFFERENTIAL STAT 09/03/2025 2:38 PM EST LAVENDER TOP STAT 09/03/2025 2:38 PM EST LIGHT BLUE TOP STAT 09/03/2025 2:38 PM EST RAINBOW DRAW STAT 09/03/2025 2:38 PM EST TROPONIN STAT 09/03/2025 2:38 PM EST D-DIMER, QUANTITATIVE STAT 09/03/2025 2:38 PM EST CBC AND DIFFERENTIAL STAT 09/03/2025 2:38 PM EST B-TYPE NATRIURETIC PEPTIDE STAT 09/03/2025 2:38 PM EST LIPASE STAT 09/03/2025 2:38 PM EST COMPREHENSIVE METABOLIC PANEL STAT 09/03/2025 2:38 PM EST XR CHEST 1 VW STAT 09/03/2025 2:29 PM EST ECG 12-LEAD STAT 09/03/2025 2:24 PM EST documented in this encounter Results * D-dimer, Quantitative (09/03/2025 2:38 PM EST) D-Dimer, Quantitative <0.27 0.00 - 0.50 MCGFEU/mL 09/03/2025 3:36 PM EST [facility] Blood Line / Unknown 09/03/2025 2: 38 PM EST 09/03/2025 2:47 PM EST [facility] - 09/03/2025 3:36 PM EST According to the assay golf ball cover treater's published package insert, a normal (<0.50 MCGFEU/mL) D-dimer result in conjunction with a non-high clinical probability assessment, excludes deep vein thrombosis (DVT) and pulmonary embolism (PE) with high sensitivity. D-dimer values increase with age and this can make VTE exclusion of an older population difficult. To address this, the [place] [employer], based on best available evidence and recent guidelines, recommends that clinicians use age-adjusted D-dimer thresholds in patients greater than 50 years of age with: a) a low probability of PE who do not meet all Pulmonary Embolism Rule Out Criteria, or b) in those with intermediate probability of PE. The formula for an age-adjusted D-dimer cut-off is age/100 . For example, a 60 year old patient would have an age-adjusted cut-off of 0.60 MCGFEU/mL and an 80 year old 0.80 MCGFEU/mL. Kenny Christianson MD LAB BLOOD ORDERABLES Final Result [facility]
[address] [place] [address], * (ABNORMAL) CBC Auto Differential (09/03/2025 2:38 PM EST) WBC 9.08 3.40 - 10.80 10*3/mm3 09/03/2025 2:54 PM EST [facility] RBC 4.76 3.77 - 5.28 10*6/mm3 09/03/2025 2:54 PM EST [facility] Hemoglobin 13.7 12.0 - 15.9 g/dL 09/03/2025 2:54 PM EST [facility] Hematocrit 42.5 34.0 - 46.6 % 09/03/2025 2:54 PM EST [facility] MCV 89.3 79.0 - 97.0 fL 09/03/2025 2:54 PM EST [facility] MCH 28.8 26.6 - 33.0 pg 09/03/2025 2:54 PM [facility] MCHC 32.2 31.5 - 35.7 g/dL 09/03/2025 2:54 PM [facility] RDW 12.6 12.3 - 15.4 % 09/03/2025 2:54 PM [facility] RDW-SD 41.3 37.0 - 54.0 fl 09/03/2025 2:54 PM [facility] MPV 10.6 6.0 - 12.0 fL 09/03/2025 2:54 PM [facility] Platelets 320 140 - 450 10*3/mm3 09/03/2025 2:54 PM [facility] Neutrophil % 60.9 42.7 - 76.0 % 09/03/2025 2:54 PM [facility] Lymphocyte % 28.3 19.6 - 45.3 % 09/03/2025 2:54 PM [facility] Monocyte % 8.7 5.0 - 12.0 % 09/03/2025 2:54 PM [facility] Eosinophil % 1.2 0.3 - 6.2 % 09/03/2025 2:54 PM [facility] Basophil % 0.3 0.0 - 1.5 % 09/03/2025 2:54 PM [facility] Immature Grans % 0.6(H) 0.0 - 0.5 % 09/03/2025 2:54 PM [facility] Neutrophils, Absolute 5.53 1.70 - 7.00 10*3/mm3 09/03/2025 2:54 PM [facility] Lymphocytes, Absolute 2.57 0.70 - 3.10 10*3/mm3 09/03/2025 2:54 PM [facility] Monocytes, Absolute 0.79 0.10 - 0.90 10*3/mm3 09/03/2025 2:54 PM [facility] Eosinophils, Absolute 0.11 0.00 - 0.40 10*3/mm3 09/03/2025 2:54 PM [facility] Basophils, Absolute 0.03 0.00 - 0.20 10*3/mm3 09/03/2025 2:54 PM EST [facility] Immature Grans, Absolute 0.05 0.00 - 0.05 10*3/mm3 09/03/2025 2:54 PM EST [facility] nRBC 0.0 0.0 - 0.2 /100 WBC 09/03/2025 2:54 PM EST [facility] Blood Line / Unknown 09/03/2025 2: 38 PM EST 09/03/2025 2:47 PM EST Kenny Christianson MD LAB BLOOD ORDERABLES Final Result [facility]
[address] [place] [address], * Light Blue Top (09/03/2025 2:38 PM EST) Extra Tube Hold for add-ons. 09/03/2025 3:00 PM EST [facility] Comment:Auto resulted Blood Line / Unknown 09/03/2025 2: 38 PM EST 09/03/2025 2:47 PM EST Kenny Christianson MD LAB BLOOD ORDER ONLY Final Result Performing Organization Address City/[facility]/ZIP Co de Phone Number [facility] [place] [address], * [place] Top (09/03/2025 2:38 PM EST) Extra Tube Hold for add-ons. 09/03/2025 3:00 PM EST [facility] Comment:Auto resulted. Blood Line / Unknown 09/03/2025 2: 38 PM EST 09/03/2025 2:47 PM EST Kenny Christianson MD LAB BLOOD ORDER ONLY Final Result [facility]
[address] [place] [address], * Gold Top - SST (09/03/2025 2:38 PM EST) Extra Tube Hold for add-ons. 09/03/2025 3:00 PM EST [facility] Comment:Auto resulted. Blood Line / Unknown 09/03/2025 2: 38 PM EST 09/03/2025 2:47 PM EST Kenny Christianson MD LAB BLOOD ORDER ONLY Final Result Performing Organization Address [facility] de Phone Number [facility]
[address] [place] [address], * Lavender Top (09/03/2025 2:38 PM EST) Extra Tube hold for add-on 09/03/2025 3:00 PM EST [facility] Comment:Auto resulted Blood Line / Unknown 09/03/2025 2: 38 PM EST 09/03/2025 2:47 PM EST Kenny Christianson MD LAB BLOOD ORDER ONLY Final Result Performing Organization Address [facility] de Phone Number [facility]
[address] [place] [address], * Green Top (Gel) (09/03/2025 2:38 PM EST) Extra Tube Hold for add-ons. 09/03/2025 3:00 PM EST [facility] Comment:Auto resulted. Blood Line / Unknown 09/03/2025 2: 38 PM EST 09/03/2025 2:47 PM EST Kenny Christianson MD LAB BLOOD ORDER ONLY Final Result Performing Organization Address City/[facility]/ZIP Co de Phone Number [facility]
[address] [place] [address], * BNP (09/03/2025 2:38 PM EST) proBNP <36.0 0.0 - 450.0 pg/mL 09/03/2025 3:11 PM EST [facility] Blood Line / Unknown 09/03/2025 2: 38 PM EST 09/03/2025 2:47 PM EST Narrative [facility] - 09/03/2025 3:11 PM EST This assay is used as an aid in the diagnosis of individuals suspected of having heart failure. It can be used as an aid in the diagnosis of acute decompensated heart failure (ADHF) in patients presenting with signs and symptoms of ADHF to the emergency department (ED). In addition, NT-proBNP of <300 pg/mL indicates ADHF is not likely. Age Range Result Interpretation NT-proBNP Concentration (pg/mL: <50 Positive >450 [place] 300-450 Negative <300 50-75 Positive >900 [place] 300-900 Negative <300 >75 Positive >1800 [place] 300-1800 Negative <300 Kenny Christianson MD LAB BLOOD ORDERABLES Final Result Performing Organization Address City/[facility]/ZIP Co de Phone Number [facility]
[address] [place] [address], [place] [phone] * Lipase (09/03/2025 2:38 PM EST) Lipase 20 13 - 60 U/L 09/03/2025 3:11 PM EST [facility] Blood Line / Unknown 09/03/2025 2: 38 PM EST 09/03/2025 2:47 PM EST Kenny Christianson MD LAB BLOOD ORDERABLES Final Result [facility]
[address] [place] [address], [place] [phone] * Comprehensive Metabolic Panel (09/03/2025 2:38 PM EST) [facility] Glucose 90 65 - 99 mg/dL 09/03/2025 3:11 PM [facility] BUN 9.5 6.0 - 20.0 mg/dL 09/03/2025 3:11 PM [facility] Creatinine 0.63 0.57 - 1.00 mg/dL 09/03/2025 3:11 PM [facility] Sodium 140 136 - 145 mmol/L 09/03/2025 3:11 PM [facility] Potassium 4.1 3.5 - 5.2 mmol/L 09/03/2025 3:11 PM [facility] Chloride 103 98 - 107 mmol/L 09/03/2025 3:11 PM [facility] CO2 26.6 22.0 - 29.0 mmol/L 09/03/2025 3:11 PM [facility] Calcium 9.5 8.6 - 10.5 mg/dL 09/03/2025 3:11 PM [facility] Total Protein 7.9 6.0 - 8.5 g/dL 09/03/2025 3:11 PM [facility] Albumin 5.0 3.5 - 5.2 g/dL 09/03/2025 3:11 PM [facility] ALT (SGPT) 27 1 - 33 U/L 09/03/2025 3:11 PM [facility] AST (SGOT) 19 1 - 32 U/L 09/03/2025 3:11 PM [facility] Alkaline Phosphatase 101 39 - 117 U/L 09/03/2025 3:11 PM [facility] Total Bilirubin 0.4 0.0 - 1.2 mg/dL 09/03/2025 3:11 PM [facility] Globulin 2.9 gm/dL 09/03/2025 3:11 PM [facility] Comment:Calculated Result A/G Ratio 1.7 g/dL 09/03/2025 3:11 PM EST [facility] BUN/Creatinine Ratio 15.1 7.0 - 25.0 09/03/2025 3:11 PM EST [facility] Anion Gap 10.4 5.0 - 15.0 mmol/L 09/03/2025 3:11 PM EST [facility] eGFR 131.2 >60.0 mL/min/1.7 3 09/03/2025 3:11 PM EST [facility] Blood Line / Unknown 09/03/2025 2: 38 PM EST 09/03/2025 2:47 PM EST [facility] - 09/03/2025 3:11 PM EST GFR Categories in Chronic Kidney Disease (CKD) [...] does not include race as a factor Kenny Christianson MD LAB BLOOD ORDERABLES Final Result [facility]
[address] [place] [address], * High Sensitivity Troponin T (09/03/2025 2:38 PM EST) HS Troponin T <6 <14 ng/L 09/03/2025 3:11 PM EST [facility] Blood Line / Unknown 09/03/2025 2: 38 PM EST 09/03/2025 2:47 PM EST [facility] - 09/03/2025 3:11 PM EST High Sensitive Troponin T Reference Range: <14.0 ng/L- Negative Female for AMI <22.0 ng/L- Negative Male for AMI >=14 - Abnormal Female indicating possible myocardial injury. >=22 - Abnormal Male indicating possible myocardial injury. Clinicians would have to utilize clinical acumen, EKG, Troponin, and serial changes to determine if it is an Acute Myocardial Infarction or myocardial injury due to an underlying chronic condition. Kenny Christianson MD LAB BLOOD ORDERABLES Final Result [facility]
[address] [place] [address], * XR Chest 1 View (09/03/2025 2:29 PM EST) Anatomical Region Laterality Modality Body N/A Radiographic Bhavna ging 09/03/2025 2:31 PM EST Impressions 09/03/2025 2:32 PM EST No radiographic findings of acute cardiopulmonary abnormality. Electronically Signed: Govind Bergeron 09/03/2025 2:32 PM EST Workstation ID: [id number] Narrative 09/03/2025 2:32 PM EST XR CHEST 1 VW Date of Exam: 09/03/2025 2:21 PM EST Indication: Chest Pain Triage Protocol Comparison: None available. FINDINGS: No definite focal or diffuse pulmonary infiltrate is identified. No pneumothorax or significant pleural effusion. Heart size and mediastinal contour appear within normal limits. No definite osseous abnormality is seen on this limited single view. Procedure Note Govind Bergeron MD - 09/03/2025 XR CHEST 1 VW Date of Exam: 09/03/2025 2:21 PM EST Indication: Chest Pain Triage Protocol Comparison: None available. FINDINGS: No definite focal or diffuse pulmonary infiltrate is identified. Nopneumothorax or significant pleural effusion. Heart size and mediastinalcontour appear within normal limits. No definite osseous abnormality isseen on this limited single view. IMPRESSION: No radiographic findings of acute cardiopulmonary abnormality. Electronically Signed: Govind Bergeron 09/03/2025 2:32 PM EST Workstation ID: [id number] Kenny Christianson MD IMG DIAGNOSTIC IMAGING ORD ERABLES Final Result * ECG 12 Lead Chest Pain (09/03/2025 2:24 PM EST) QT Interval 384 ms ECG QTC Interval 434 ms ECG 09/03/2025 2:24 PM EST 09/03/2025 2:57 PM EST Narrative ECG - 09/03/2025 2:57 PM EST Test Reason : Chest Pain Blood Pressure : */* mmHG Vent. Rate : 77 BPM Atrial Rate : 77 BPM P-R Int : 134 ms QRS Dur : 88 ms QT Int : 384 ms P-R-T Axes : 70 63 39 degrees QTcB Int : 434 ms Normal sinus rhythm with sinus arrhythmia Normal ECG No previous ECGs available Confirmed by MD Christianson Michael ([id number]) on 09/03/2025 2:57:34 PM Referred By: MEKHI' Confirmed By: Eloy Christianson MD Procedure Note Kenny Christianson MD - 09/03/2025 Test Reason : Chest Pain Blood Pressure : */* mmHG Vent. Rate : 77 BPM Atrial Rate : 77 BPM P-R Int : 134 ms QRS Dur : 88 ms QT Int : 384 ms P-R-T Axes : 70 63 39 degrees QTcB Int : 434 ms Normal sinus rhythm with sinus arrhythmia Normal ECG No previous ECGs available Confirmed by MD Christianson Michael ([id number]) on 09/03/2025 2:57:34 PM Referred By: MEKHI' Confirmed By: Eloy Christianson MD Kenny Christianson MD ECG ORDERABLES Final Resu lt ECG documented in this encounter Visit Diagnoses Diagnosis Palpitations- Primary Chest pain, unspecified type documented in this encounter Administered Medications Inactive Administered Medications - up to 3 most recent administrations Medication Order MAR Action Action Date Dose Rate Site aspirin chewable tablet 324 mg 324 mg, Oral, Once, On 09/03/25 at 1437, For 1 dose, Herbal/drug interaction: Avoid use with ginkgo biloba. Based on patient request - if ordered for moderate or severe pain, provider allows for administration of a medication prescribed for a lower pain scale. Do not exceed 4 grams of aspirin in a 24 hr period. If given for pain, use the following pain scale: Mild Pain = Pain Score of 1-3, CPOT 1-2 Moderate Pain = Pain Score of 4-6, CPOT 3-4 Severe Pain = Pain Score of 7-10, CPOT 5-8, Indications: Chest pain protocolIndications:Chest pain protocol Given 09/03/2025 2:34 PM EST 324 mg ketorolac (TORADOL) injection 15 mg 15 mg, Intravenous, Once, On Wed09/03/25 at 1442, For 1 dose, Based on patient request - if ordered for moderate or severe pain, provider allows for administration of a medication prescribed for a lower pain scale. (BK) If given for pain, use the following pain scale: Mild Pain = Pain Score of 1-3, CPOT 1-2 Moderate Pain = Pain Score of 4-6, CPOT 3-4 Severe Pain = Pain Score of 7-10, CPOT 5-8 Given 09/03/2025 2:36 PM EST 15 mg sodium chloride 0.9 % flush 10 mL 10 mL, Intravenous, As Needed, Line Care, Starting on Wed09/03/25 at 1421 documented in this encounter Active and Recently Administered Medications Times are shown in EST. Scheduled Medication Order 09/01/2025 09/02/2025 09/03/2025 aspirin chewable tablet 324 mg (COMPLETED) 324 mg, Oral, Once, On Wed09/03/25 at 1437, For 1 dose, Herbal/drug interaction: Avoid use with ginkgo biloba. Based on patient request - if ordered for moderate or severe pain, provider allows for administration of a medication prescribed for a lower pain scale. Do not exceed 4 grams of aspirin in a 24 hr period. If given for pain, use the following pain scale: Mild Pain = Pain Score of 1-3, CPOT 1-2 Moderate Pain = Pain Score of 4-6, CPOT 3-4 Severe Pain = Pain Score of 7-10, CPOT 5-8, Indications: Chest pain protocol 1434 (Given - Provid er: Sarah Beth Seaman RN) ketorolac (TORADOL) injection 15 mg (COMPLETED) 15 mg, Intravenous, Once, On Wed09/03/25 at 1442, For 1 dose, Based on patient request - if ordered for moderate or severe pain, provider allows for administration of a medication prescribed for a lower pain scale. (BKC) If given for pain, use the following pain scale: Mild Pain = Pain Score of 1-3, CPOT 1-2 Moderate Pain = Pain Score of 4-6, CPOT 3-4 Severe Pain = Pain Score of 7-10, CPOT 5-8 1436 (Given - Provid er: Sarah Beth Seaman RN) PRN Medication Order 09/01/2025 09/02/2025 09/03/2025 sodium chloride 0.9 % flush 10 mL 10 mL, Intravenous, As Needed, Line Care, Starting on Wed09/03/25 at 1421 documented in this encounter Care Teams Specialty Molder Relationship Specialty Start Date End Date Hugh Galicia PA [address] [facility] [place] [id number] PCP - General Family Medicine 08/07/25 documented as of this encounter
--- OUTSIDE RECORDS SUMMARY | 2025-09-25 08:30 | XMS_ITS | Encounter Summary ---
Author Organization [facility] Address [address] [place] [address] Care Team Providers Care Hydrometallurgical Engineer Name Role Phone Hugh Galicia Primary Care Provider Reason for Referral * Diagnostic Imaging (Routine) - Pending Review Specialty Diagnoses / Procedures Referred By Erica t Referred To Contact Diagnoses Chest pain, unspecified type Heart murmur Palpitations Procedures Adult Transthoracic Echo Complete W/ Cont if Necessary Per Protocol IL ECHO TTHRC R-T 2D W/WOM-MODE COMPL SPEC&COLR D IL ECHO TRANSTHORC R-T 2D W/WO M-MODE REC F-UP/LMTD Ophelia Stephens APRN [address] [address] Phone: tel: fax: Referral ID Status Reason Start Date Expiration Date V isits Requested Visits Authorized [id number] Pending Review 09/25/2025 12/25/2026 1 1 Reason for Visit * Reason Comments Chest Pain Palpitations * Consultation (Routine) - Closed Specialty Diagnoses / Procedures Referred By Contberna t Referred To Contact Cardiology Diagnoses Palpitations Chest pain, unspecified type Procedures IL OFFICE/OUTPATIENT NEW MODERATE MDM 45 MINUTES Kenny Christianson MD [address] [place] [address] Phone: tel: fax: [facility] [address] [address] Phone: tel: fax: Referral ID Status Reason Start Date Expiration Date V isits Requested Visits Authorized [id number] Closed Specialty Services Required 09/03/2025 12/03/2026 1 1 Encounter Details Date Type Department Care Team (Late st Contact Info) Description 09/25/2025 8:30 AM EST Office Visit [facility] [address] [facility] [address] [place] [address] Ophelia Stephens, SIGNALS INTELLIGENCE ANALYST [address] [facility] [place] [address] Chest pain, unspecified type (Primary Dx); Heart murmur; Palpitations Social History Tobacco Use Types Packs/Day Years Used Date Smoking Tobacco: Never Passive Smoke Exposure: Never Smokeless Tobacco: Never Tobacco Cessation:Counseling Given: [...] Sign Reading Time Taken Comments Blood Pressure 124/71 09/25/2025 8:38 AM EST Pulse 88 09/25/2025 8:38 AM EST Temperature - - Respiratory Rate - - Oxygen Saturation 100% 09/25/2025 8:38 AM EST Inhaled Oxygen Concentration - - Weight 59 kg (130 lb) 09/25/2025 8:38 AM EST Height 160 cm (5' 3 ) 09/25/2025 8:38 AM EST Body Mass Index 23.03 09/25/2025 8:38 AM EST documented in this encounter Progress Notes * Ophelia Stephens, SIGNALS INTELLIGENCE ANALYST - 09/25/2025 8:[address] [facility] PCP: Hugh Galicia PA Referring provider: Kenny Christianson MD Chief Complaint Chest Pain and Palpitations Problem List: Anxiety Subjective History of Present Illness Adilene Alvarez, 19 y.o. female who presents today for Chest Pain and Palpitations Patient presented to the ED on 09/03 with complaints of chest pain and palpitations. She works at [employer] and reports that she started having sharp/stabbing left-sided chest pain with intermittent palpitations. Labs were benign, normal high sensitive troponin, normal proBNP, normal D-dimer, normal EK G and chest x-ray. She reports sharp chest pains for years. On the day of the ED she was at work and had sharp pain and felt lightheaded with her heart racing up to 140 bpm which then went down to 80bpm when she sat down. Recently saw OBGYN and was found to have a mass on both sides of her breast and she has an ultrasound tomorrow. Chest pains occur randomly and daily, when it happens it does get worse with breathing or movement. 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 No further palpitations. No further lightheadedness or near syncope. No syncope. 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 Physical Exam Vitals reviewed. Constitutional: Appearance: Normal appearance. HENT: Head: Normocephalic. Neck: Vascular: No carotid bruit. Cardiovascular: Rate and Rhythm: Normal rate and regular rhythm. Pulses: Normal pulses. Heart sounds: S1 normal and S2 normal. Murmur heard. Systolic murmur is present with a grade of 1/6. Pulmonary: Effort: Pulmonary effort is normal. No respiratory distress. Breath sounds: Normal breath sounds. Chest: Chest wall: No tenderness. Abdominal: General: Abdomen is flat. Palpations: Abdomen is soft. Musculoskeletal: Cervical back: Neck supple. Right lower leg: No edema. Left lower leg: No edema. Skin: General: Skin is warm and dry. Neurological: General: No focal deficit present. Mental Status: She is alert and oriented to person, place, and time. Mental status is at baseline. Psychiatric: Mood and Affect: Mood normal. Behavior: Behavior normal. Thought Content: Thought content normal. Data Reviewed:{ Labs Result Review Imaging Med Tab Media :23} Lab Results Component Value Date GLUCOSE 90 09/03/2025 CALCIUM 9.5 09/03/2025 NA 140 09/03/2025 K 4.1 09/03/2025 CO2 26.6 09/03/2025 CL 103 09/03/2025 BUN 9.5 09/03/2025 CREATININE 0.63 09/03/2025 EGFR 131.2 09/03/2025 BCR 15.1 09/03/2025 ANIONGAP 10.4 09/03/2025 Lab Results Component Value Date WBC 9.08 09/03/2025 HGB 13.7 09/03/2025 HCT 42.5 09/03/2025 MCV 89.3 09/03/2025 PLT 320 09/03/2025 Lab Results Component Value Date PROBNP <36.0 09/03/2025 No results found for: MG Lab Results Component Value Date TSH 1.110 08/07/2025 Lab Results Component Value Date CHOL 147 08/07/2025 TRIG 38 08/07/2025 HDL 57 08/07/2025 LDL 81 08/07/2025 No results found for: HGBA1C Lab Results Component Value Date TROPONINT <6 09/03/2025 Assessment & Plan Assessment and Plan 1. Chest pain, unspecified type -Atypical, reproducible chest pain. She has upcoming breast ultrasound for possible mass. Considering her athletic history, very unlikely this is cardiac and she agrees with this - Adult Transthoracic Echo Complete W/ Cont if Necessary Per Protocol; Future 2. Heart murmur -Possible very slight murmur. She is asymptomatic. We did discuss doing an echo. She currently is financially limited with upcoming surgeries, but will consider depending on affordability - Adult Transthoracic Echo Complete W/ Cont if Necessary Per Protocol; Future 3. Palpitations -No further symptoms. She had some mild orthostatic tachycardia on exam. I have encouraged her to increase hydration. She monitors her heart rates on her Apple watch. She would like to defer monitor for now, which I believe is reasonable - Adult Transthoracic Echo Complete W/ Cont if Necessary Per Protocol; Future Follow Up Return if symptoms worsen or fail to improve. Patient was given instructions and counseling regarding her condition or for health maintenance advice. Please see specific information pulled into the AVS if appropriate. Patient was instructed to call the [facility] with any questions, concerns, or worsening symptoms. Dictated Utilizing [employer] Dictation Please note that portions of this note were completed with a voice recognition program. Part of this note may be an electronic cvt rn/translation of spoken language to printed textusing the [employer] Technologiesation System. documented in this encounter Plan of Treatment Upcoming Encounters Date Type Department Care Team (Late st Contact Info) Description 12/21/2025 10:00 AM EST Office Visit [facility] [address] [facility] [address] [place] [address] Delia Kirkland APRN [address] [facility] [address] [place] [address] Scheduled Orders Name Type Priority Associated Diagnoses Orde r Schedule Adult Transthoracic Echo Complete W/ Cont if Necessary Per Protocol Echocardiography Routine Chest pain, unspecified type Heart murmur Palpitations Expected: 09/30/2025 (Approximate), Expires: 09/25/2026 documented as of this encounter Visit Diagnoses Diagnosis Chest pain, unspecified type- Primary Heart murmur Undiagnosed cardiac murmurs Palpitations documented in this encounter Care Teams Hydrometallurgical Engineer Relationship Specialty Start Date End Date Hugh Galicia PA [address] [facility] [address] [place] [address] PCP - General Family Medicine 08/07/25 documented as of this encounter
--- NOTE | 2025-09-26 14:30 | US_ITS ---
PROCEDURE INFORMATION: Exam: US Left Breast, Complete US Right Breast, Complete Exam date and time: 09/26/2025 2:42 PM Age: 19 years old Clinical indication: Breast pain; Left; Additional info: Breast pain and lumps TECHNIQUE: Imaging protocol: Complete ultrasound of all four quadrants of the left breast and the retroareolar regions, including ultrasound of the axilla when performed. Complete ultrasound of all four quadrants of the right breast and the retroareolar regions, including ultrasound of the axilla when performed. COMPARISON: No relevant prior studies available. FINDINGS: ULTRASOUND: Breast ultrasound findings: There is no underlying solid or cystic abnormality, area of architectural distortion, or acoustical shadowing. No axillary adenopathy. IMPRESSION: No sonographic evidence of malignancy. Continued clinical monitoring for any changes in symptoms is recommended with repeat imaging if necessary. ASSESSMENT: BI-RADS Category 1: Negative.
--- OUTSIDE RECORDS SUMMARY | 2025-09-26 14:30 | XMS_ITS | Encounter Summary ---
Author Organization [facility] Address [address] [place] [address] Care Team Providers Care Assistant Golf Course Superintendent Name Role Phone Hugh Galicia Primary Care Provider Encounter Details Date Type Department Care Team (Latest Contact Info) Description 08/07/2025 Travel Social History Tobacco Use Types Packs/Day Years [...] Description 12/21/2025 10:00 AM EST Office Visit [facility] [address] [facility] [address] [place] [address] Delia Kirkland APRN [address] [facility] [address] [place] [address] documented as of this encounter Visit Diagnoses Not on filedocumented in this encounter Care Teams Assistant Golf Course Superintendent Relationship Specialty Start Date End Date Hugh Galicia PA [address] [facility] [address] [place] [address] PCP - General Family Medicine 08/07/25 documented as of this encounter
--- OUTSIDE RECORDS SUMMARY | 2025-09-26 14:30 | XMS_ITS | Clinical Summary ---
Author Organization [facility] Address [address] [place] [address] Care Team Providers Care Valve Tester Name Role Phone Hugh Galicia Primary Care Provider Allergies Active Allergy Reactions Criticality Noted Date Comments Escitalopram Other (See Comments) 08/21/2025 Chest felt weird, itchy, didn't feel right Medications sertraline (Zoloft) 25 MG tablet Take 1 tablet by mouth Daily. 30 tablet 1 08/21/2025 Active Active Problems No known active problems Encounters Date Type Department Care Team Description 09/25/2025 8:30 AM EST Office Visit [facility] CARDIOLOGY [address] [facility] [address] [place] [phone] Ophelia Stephens APRN Chest pain, unspecified type (Primary Dx); Heart murmur; Palpitations 09/25/2025 Travel 09/14/2025 Telephone [facility] ORTHOPEDICS & SPORTS MEDICINE [address] [facility] [address] [place] [phone] Michael Roque MD 09/03/2025 3:38 PM EST - 09/03/2025 4:00 PM EST Emergency [facility] EMERGENCY DEPARTMENT [address] [place] [phone] Kenny hCristianson MD Palpitations (Primary Dx); Chest pain, unspecified type Discharge Disposition: Home or Self Care 09/03/2025 Travel 09/03/2025 Telephone [facility] FAMILY MEDICINE [address] [facility] [place] [address] [place] [address] Hugh Galicia PA Rapid Heart Rate 08/30/2025 8:45 AM EST Ancillary Procedure [facility] ORTHOPEDICS & SPORTS MEDICINE [address] [facility] [place] [address] [place] [address] 08/30/2025 8:30 AM EST Office Visit [facility] ORTHOPEDICS SPORTS [facility] [address] [facility] [place] [address] [place] [address] Michael Roque MD Pain in both knees, unspecified chronicity (Primary Dx); Dysplasia of trochlea of femur; 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 08/30/2025 Travel 08/22/2025 Telephone [facility] FAMILY MEDICINE [address] [facility] [place] [address] [place] [address] Hugh Galicia PA Advice Only 08/22/2025 Telephone [facility] FAMILY MEDICINE [address] [facility] [address] [place] [address] Hugh Galicia PA REFERRAL 08/21/2025 4:30 PM EDT Office Visit [facility] [address] [facility] [place] [address] [place] [address] Hugh Galicia PA Anxiety (Primary Dx); Chronic pain of both knees; Menstrual disorder 08/21/2025 Travel 08/09/2025 Patient rounding ([facility] only) [facility] FAMILY MEDICINE [address] [facility] [place] [address] [place] [address] Shy [place] RegSched Rep 08/09/2025 Results Follow-Up [facility] MEDICINE [address] [place] [address] [address] [place] [address] Hugh Galicia PA 08/07/2025 11:45 AM EDT Lab [place] [id number] [facility] [place] [address] [place] [address] Routine general medical examination at a health care facility; Fatigue, unspecified type; Pain in both knees, unspecified chronicity; Family history of autoimmune disorder 08/07/2025 11:00 AM EDT Office Visit [facility] FAMILY MEDICINE [address] [facility] [place] [address] [place] [address] Hugh Galicia PA Routine general medical examination at a health care facility (Primary Dx); Anxiety; Pain in both knees, unspecified chronicity; Fatigue, unspecified type; Post-void dribbling; Family history of autoimmune disorder; Menorrhagia with irregular cycle 08/07/2025 Travel from Last 3 Months Family History Medical History Relation Name Comments Anxiety disorder Brother 1 Alex Voss 16 Hyperlipidemia Brother 1 Alex Voss Hypertension Brother 1 Alex Voss Asthma Brother 2 Job Antonio 1 Asthma Brother 3 Domenic Voss 2 Hypertension Brother 3 Domenic Voss Anxiety disorder Father Kenny Alvarez 40 Arthritis Father Kenny Antonio 16 Depression Father Kenny Antonio Diabetes Father Kenny Antonio Mental illness Father Kenny Alvarez Migraine Father Kenny Alvarez Arthritis Maternal Grandfather Sarath Alen Cancer Maternal Grandfather Sarath Alen Hearing loss Maternal Grandfather Sarath Alen Hyperlipidemia Maternal Grandfather Sarath Santo Hypertension Maternal Grandfather Sarath Alen Stroke Maternal Grandfather Sarath Alen Thyroid disease Maternal Grandfather Sarath Alen Vision loss Maternal Grandfather Sarath Alen Arthritis Maternal Grandmother Leigh Ann Santo Diabetes Maternal Grandmother Leigh Ann Santo Hyperlipidemia Maternal Grandmother Leigh Ann Santo Hypertension Maternal Grandmother Leigh Ann Santo Anxiety disorder Mother Yakelin santo 20 Depression Mother Yakelin santo Hypertension Mother Yakelin santo Mental illness Mother Yakelinrose santo Arthritis Paternal Grandmother Raginimeagan Alvarez Cancer Paternal Grandmother Raginimeagan Alvarez Diabetes Paternal Grandmother Raginimeagan Alvarez Vision loss Paternal Grandmother Ragini Antonio Relation Name Status Comments Brother 1 Alex Voss Alive Brother 2 Job Antonio Alive Brother 3 Domenic Voss Alive Father Kenny Alvarez Alive Maternal Grandfather Sarath Santo Alive Maternal Grandmother Leigh Ann Santo Alive Mother Yakelin santo Alive Paternal Grandmother Ragini Alvarez Social History Tobacco Use Types Packs/Day Years [...] on file Sexual Orientation Not on file Last Filed Vital Signs Vital Sign Reading Time Taken Comments Blood Pressure 124/71 09/25/2025 8:38 AM EST Pulse 88 09/25/2025 8:38 AM EST Temperature 36.9 C (98.4 F) 09/03/2025 2:19 PM EST Respiratory Rate 16 09/03/2025 3:58 PM EST Oxygen Saturation 100% 09/25/2025 8:38 AM EST Inhaled Oxygen Concentration - - Weight 59 kg (130 lb) 09/25/2025 8:38 AM EST Height 160 cm (5' 3 ) 09/25/2025 8:38 AM EST Body Mass Index 23.03 09/25/2025 8:38 AM EST Plan of Treatment Upcoming Encounters Date Type Department Care Team (Late st Contact Info) Description 12/21/2025 10:00 AM EST Office Visit [facility] [address] [address] [place] [address] [place] [address] Delia Kirkland, RACHEL [address] [place] [address] Health Maintenance Due Date Last Done Comments MENINGOCOCCAL B VACCINE (1 of 2 - Standard) 2021 CHLAMYDIA SCREENING 08/07/2025 HEPATITIS C SCREENING 08/07/2025 INFLUENZA VACCINE 02/17/2026 08/29/2020, , 07/29/2018, Additional history exists Postponed from 05/25/2025 (Patient Refused) ANNUAL PHYSICAL 08/07/2026 08/07/2025 TDAP/TD VACCINES (2 - Td or Tdap) 03/17/2027 03/17/2017 Pneumococcal Vaccine 0-49 Aged Out 2006, 05/28/2006, 03/30/2006, Additional history exists No longer eligible based on patient's age to complete this topic MENINGOCOCCAL VACCINE Aged Out 03/17/2017 No vane juliet eligible based on patient's age to complete this topic HPV VACCINES Completed 12/04/2019, 03/17/2017 Procedures Procedure Name Priority Date/Time Associated Diagnosis Comments LIGHT BLUE TOP STAT 09/03/2025 2:38 PM EST [place] TOP STAT 09/03/2025 2:38 PM EST GOLD TOP - SST STAT 09/03/2025 2:38 PM EST LAVENDER TOP STAT 09/03/2025 2:38 PM EST DK GREEN TOP STAT 09/03/2025 2:38 PM EST CBC AND DIFFERENTIAL STAT 09/03/2025 2:38 PM EST D-DIMER, QUANTITATIVE STAT 09/03/2025 2:38 PM EST CBC WITH AUTO DIFFERENTIAL STAT 09/03/2025 2:38 PM EST B-TYPE NATRIURETIC PEPTIDE STAT 09/03/2025 2:38 PM EST LIPASE STAT 09/03/2025 2:38 PM EST COMPREHENSIVE METABOLIC PANEL STAT 09/03/2025 2:38 PM EST TROPONIN STAT 09/03/2025 2:38 PM EST RAINBOW DRAW STAT 09/03/2025 2:38 PM EST XR CHEST 1 VW STAT 09/03/2025 2:29 PM EST ECG 12-LEAD STAT 09/03/2025 2:24 PM EST XR KNEE 3 VW BILATERAL Routine 8:44 AM EST Pain in both knees, unspecified chronicity CBC AND DIFFERENTIAL Routine 08/07/2025 11:54 AM EDT Routine general medical examination at a [facility] care facility CBC WITH AUTO DIFFERENTIAL Routine 08/07/2025 11:54 AM EDT Routine general medical examination at a [facility] care facility C-REACTIVE PROTEIN Routine 08/07/2025 11 :54 AM EDT Pain in both knees, unspecified chronicity Family history of autoimmune disorder SEDIMENTATION RATE Routine 08/07/2025 11 :54 AM EDT Pain in both knees, unspecified chronicity Family history of autoimmune disorder RHEUMATOID FACTOR Routine 08/07/2025 11: 54 AM EDT Pain in both knees, unspecified chronicity Family history of autoimmune disorder ALVERTO BY IFA, REFLEX TO TITER AND PATTERN Routine 08/07/2025 11:54 AM EDT Pain in both knees, unspecified chronicity Family history of autoimmune disorder COMPREHENSIVE METABOLIC PANEL Routine 08/07/2025 11:54 AM EDT Routine general medical examination at a health care facility T4, FREE Routine 08/07/2025 11:54 AM EDT Fatigue, unspecified type TSH Routine 08/07/2025 11:54 AM EDT Fatigue, unspecified type LIPID PANEL Routine 08/07/2025 11:54 AM EDT Routine general medical examination at a health care facility from Last 3 Months Results * [place] Top (09/03/2025 2:38 PM EST) Extra Tube Hold for add-ons. 09/03/2025 3:00 PM EST [facility] Comment:Auto resulted. Blood Line / Unknown 09/03/2025 2: 38 PM EST 09/03/2025 2:47 PM EST Kenny Christianson MD LAB BLOOD ORDER ONLY Final Result Performing Organization Address City/[facility]/ZIP Co de Phone Number [facility]
[address] [place] [address], * Gold Top - SST (09/03/2025 2:38 PM EST) Extra Tube Hold for add-ons. 09/03/2025 3:00 PM EST [facility] Comment:Auto resulted. Blood Line / Unknown 09/03/2025 2: 38 PM EST 09/03/2025 2:47 PM EST Kenny Christianson MD LAB BLOOD ORDER ONLY Final Result Performing Organization Address [facility] Co de Phone Number [facility]
[address] [place] [address], * Green Top (Gel) (09/03/2025 2:38 PM EST) Extra Tube Hold for add-ons. 09/03/2025 3:00 PM EST [facility] Comment:Auto resulted. Blood Line / Unknown 09/03/2025 2: 38 PM EST 09/03/2025 2:47 PM EST Kenny Christianson MD LAB BLOOD ORDER ONLY Final Result Performing Organization Address City/[facility] Co de Phone Number [facility]
[address] [place] [address], * (ABNORMAL) CBC Auto Differential (09/03/2025 2:38 PM EST) Only the most recent of2 resultswithin the time period is included. [facility] WBC 9.08 3.40 - 10.80 10*3/mm3 09/03/2025 2:54 PM [facility] RBC 4.76 3.77 - 5.28 10*6/mm3 09/03/2025 2:54 PM [facility] Hemoglobin 13.7 12.0 - 15.9 g/dL 09/03/2025 2:54 PM [facility] Hematocrit 42.5 34.0 - 46.6 % 09/03/2025 2:54 PM [facility] MCV 89.3 79.0 - 97.0 fL 09/03/2025 2:54 PM [facility] MCH 28.8 26.6 - 33.0 pg 09/03/2025 2:54 PM [facility] MCHC 32.2 31.5 - 35.7 g/dL 09/03/2025 2:54 PM [facility] RDW 12.6 12.3 - 15.4 % 09/03/2025 2:54 PM [facility] RDW-SD 41.3 37.0 - 54.0 fl 09/03/2025 2:54 PM [facility] MPV 10.6 6.0 - 12.0 fL 09/03/2025 2:54 PM [facility] Platelets 320 140 - 450 10*3/mm3 09/03/2025 2:54 PM [facility] Neutrophil % 60.9 42.7 - 76.0 % 09/03/2025 2:54 PM [facility] Lymphocyte % 28.3 19.6 - 45.3 % 09/03/2025 2:54 PM [facility] Monocyte % 8.7 5.0 - 12.0 % 09/03/2025 2:54 PM [facility] Eosinophil % 1.2 0.3 - 6.2 % 09/03/2025 2:54 PM [facility] Basophil % 0.3 0.0 - 1.5 % 09/03/2025 2:54 PM EST [facility] Immature Grans % 0.6(H) 0.0 - 0.5 % 09/03/2025 2:54 PM EST [facility] Neutrophils, Absolute 5.53 1.70 - 7.00 10*3/mm3 09/03/2025 2:54 PM EST [facility] Lymphocytes, Absolute 2.57 0.70 - 3.10 10*3/mm3 09/03/2025 2:54 PM EST [facility] Monocytes, Absolute 0.79 0.10 - 0.90 10*3/mm3 09/03/2025 2:54 PM EST [facility] Eosinophils, Absolute 0.11 0.00 - 0.40 10*3/mm3 09/03/2025 2:54 PM EST [facility] Basophils, Absolute 0.03 0.00 - 0.20 10*3/mm3 09/03/2025 2:54 PM EST [facility] Immature Grans, Absolute 0.05 0.00 - 0.05 10*3/mm3 09/03/2025 2:54 PM [facility] nRBC 0.0 0.0 - 0.2 /100 WBC 09/03/2025 2:54 PM EST [facility] Blood Line / Unknown 09/03/2025 2: 38 PM EST 09/03/2025 2:47 PM EST Kenny Christianson MD LAB BLOOD ORDERABLES Final Result [facility]
[address] [place] [address], * Lavender Top (09/03/2025 2:38 PM EST) Extra Tube hold for add-on 09/03/2025 3:00 PM EST [facility] Comment:Auto resulted Blood Line / Unknown 09/03/2025 2: 38 PM EST 09/03/2025 2:47 PM EST Kenny Christianson MD LAB BLOOD ORDER ONLY Final Result Performing Organization Address City/[facility]/ZIP Co de Phone Number [facility]
[address] [place] [address], * Light Blue Top (09/03/2025 2:38 PM EST) Pathologist [facility] Extra Tube Hold for add-ons. 09/03/2025 3:00 PM EST [facility] Comment:Auto resulted Blood Line / Unknown 09/03/2025 2: 38 PM EST 09/03/2025 2:47 PM EST Kenny Christianson MD LAB BLOOD ORDER ONLY Final Result Performing Organization Address [facility] Co de Phone Number [facility]
[address] [place] [address], * High Sensitivity Troponin T (09/03/2025 2:38 PM EST) Pathologist [facility] HS Troponin T <6 <14 ng/L 09/03/2025 3:11 PM EST [facility] Blood Line / Unknown 09/03/2025 2: 38 PM EST 09/03/2025 2:47 PM EST Narrative [facility] - 09/03/2025 3:11 PM EST High [...] BLOOD ORDERABLES Final Result Performing Organization Address City/[facility] Co de Phone Number [facility]
[address] [place] [address], * D-dimer, Quantitative (09/03/2025 2:38 PM EST) Pathologist [facility] D-Dimer, Quantitative <0.27 0.00 - 0.50 MCGFEU/mL 09/03/2025 3:36 PM EST [facility] Blood Line / Unknown 09/03/2025 2: 38 PM EST 09/03/2025 2:47 PM EST [facility] - 09/03/2025 3:36 PM EST According to the assay repertoire manager's published package insert, a normal (<0.50 MCGFEU/mL) D-dimer result in conjunction with a non-high clinical probability assessment, excludes deep vein thrombosis (DVT) and pulmonary embolism (PE) with high sensitivity. D-dimer values increase with age and this can make VTE exclusion of an older population difficult. To address this, the [employer], based on best available [...] Christianson MD LAB BLOOD ORDERABLES Final Result [facility]
[address] [place] [address], * BNP (09/03/2025 2:38 PM EST) [facility] proBNP <36.0 0.0 - 450.0 pg/mL 09/03/2025 3:11 PM EST [facility] Blood Line / Unknown 09/03/2025 2: 38 PM EST 09/03/2025 2:47 PM EST Narrative [facility] - 09/03/2025 3:11 PM [...] BLOOD ORDERABLES Final Result Performing Organization Address City/[facility]/ZIP Co de Phone Number [facility]
[address] [place] [address], * Lipase (09/03/2025 2:38 PM EST) Lipase 20 13 - 60 U/L 09/03/2025 3:11 PM EST [facility] Blood Line / Unknown 09/03/2025 2: 38 PM EST 09/03/2025 2:47 PM EST Kenny Christianson MD LAB BLOOD ORDERABLES Final Result Performing Organization Address City/[facility]/ZIP Co de Phone Number [facility]
[address] [place] [address], [place] [phone] * Comprehensive Metabolic Panel (09/03/2025 2:38 PM EST) Only the most recent of2 resultswithin the time period is included. Glucose 90 65 - 99 mg/dL 09/03/2025 3:11 PM EST [facility] BUN 9.5 6.0 - 20.0 mg/dL 09/03/2025 3:11 PM EST [facility] Creatinine 0.63 0.57 - 1.00 mg/dL 09/03/2025 3:11 PM [facility] Sodium 140 136 - 145 mmol/L 09/03/2025 3:11 PM [facility] Potassium 4.1 3.5 - 5.2 mmol/L 09/03/2025 3:11 PM [facility] Chloride 103 98 - 107 mmol/L 09/03/2025 3:11 PM [facility] CO2 26.6 22.0 - 29.0 mmol/L 09/03/2025 3:11 PM [facility] Calcium 9.5 8.6 - 10.5 mg/dL 09/03/2025 3:11 PM [facility] Total Protein 7.9 6.0 - 8.5 g/dL 09/03/2025 3:11 PM [facility] Albumin 5.0 3.5 - 5.2 g/dL 09/03/2025 3:11 PM [facility] ALT (SGPT) 27 1 - 33 U/L 09/03/2025 3:11 PM [facility] AST (SGOT) 19 1 - 32 U/L 09/03/2025 3:11 PM [facility] Alkaline Phosphatase 101 39 - 117 U/L 09/03/2025 3:11 PM [facility] Total Bilirubin 0.4 0.0 - 1.2 mg/dL 09/03/2025 3:11 PM [facility] Globulin 2.9 gm/dL 09/03/2025 3:11 PM [facility] Comment:Calculated Result A/G Ratio 1.7 g/dL 09/03/2025 3:11 PM [facility] BUN/Creatinine Ratio 15.1 7.0 - 25.0 09/03/2025 3:11 PM [facility] Anion Gap 10.4 5.0 - 15.0 mmol/L 09/03/2025 3:11 PM [facility] eGFR 131.2 >60.0 mL/min/1.7 3 09/03/2025 3:11 PM [facility] Blood Line / Unknown 09/03/2025 2: 38 PM EST 09/03/2025 2:47 PM EST Narrative [facility] - 09/03/2025 3:11 PM EST GFR [...] does not include race as a factor us Kenny Christianson MD LAB BLOOD ORDERABLES Final Result [facility]
[address] [place] [address], * XR Chest 1 View (09/03/2025 2:29 PM EST) Anatomical Region Laterality Modality Body N/A Radiographic Bhavna ging 09/03/2025 2:31 PM EST Impressions 09/03/2025 2:32 PM EST No radiographic findings of acute cardiopulmonary abnormality. Electronically Signed: Govind Bergeron 09/03/2025 2:32 PM EST Workstation ID: [id number] Narrative 09/03/2025 2:32 PM EST XR CHEST [...] Bergeron 09/03/2025 2:32 PM EST Workstation ID: [id number] Kenny Christianson MD IMG DIAGNOSTIC IMAGING ORD [...] MD ECG ORDERABLES Final Resu lt ECG * XR Knee 3 View Bilateral (08/30/2025 8:44 AM EST) Anatomical Region Laterality Modality Lower Extremities, Knee Bilateral [facility] Narrative 08/30/2025 9:01 AM EST Indication: pain. Views: Weightbearing views of the knee are submitted. Impression: There is no fracture subluxation or dislocation. The patella sits normally in the trochlea. There are no acute findings. Shallow trochlear groove, slight patella nba. Comparison: None. Michael Roque MD IMG DIAGNOSTIC IMAGING ZHOU ESTRELLA Final Result * ALVERTO by IFA, Reflex to Titer and Pattern (08/07/2025 11:54 AM EDT) ALVRETO Negative 08/09/2025 11:11 AM EDT [facility] Comment: Negative <1:80 Borderline 1:80 Positive >1:80 ICAP nomenclature: AC-0 For more information about Hep-2 cell patterns use ANApatterns.org, the official website for the International Consensus on Antinuclear Antibody (ALVERTO) Patterns (ICAP). Blood Structure of right upper limb / Unknown Venipuncture / Unknown 08/07/2025 11:54 AM EDT 08/07/2025 11:54 AM EDT Narrative [facility] - 08/09/2025 11:11 AM EDT Performed at: [address] [place] [address] [id number] Steaming Machine Operator: Juan Oliveira PhD, Phone: [phone] Hugh FLORES LAB BLOOD ORDERABLES Fi nal Result [facility] [address] [place] [address], * Sedimentation Rate (08/07/2025 11:54 AM EDT) Pathologist [facility] Sed Rate 7 0 - 20 mm/hr 08/08/2025 12:32 AM EDT [facility] Blood Structure of right upper limb / Unknown Venipuncture / Unknown 08/07/2025 11:54 AM EDT 08/07/2025 11:54 AM EDT Hugh Galicia ID LAB BLOOD ORDERABLES Fi nal Result Performing Organization Address City/[facility]/ZIP Co de Phone Number [facility]
[address] [place] [address], [place] [phone] * Rheumatoid Factor (08/07/2025 11:54 AM EDT) [facility] Rheumatoid Factor Quantitative <10.0 0.0 - 14.0 IU/mL 08/08/2025 12:11 AM EDT [facility] Blood Structure of right upper limb / Unknown Venipuncture / Unknown 08/07/2025 11:54 AM EDT 08/07/2025 11:54 AM EDT Hugh Galicia ID LAB BLOOD ORDERABLES Fi nal Result Performing Organization Address [facility] Co de Phone Number [facility]
[address] [place] [address], * C-reactive Protein (08/07/2025 11:54 AM EDT) [facility] C-Reactive Protein <0.30 0.00 - 0.50 mg/dL 08/08/2025 12:11 AM EDT [facility] Blood Structure of right upper limb / Unknown Venipuncture / Unknown 08/07/2025 11:54 AM EDT 08/07/2025 11:[address] [facility] BLOOD ORDERABLES Fi nal Result Performing Organization Address City/[facility] Co de Phone Number [facility]
[address] [place] [address], * TSH (08/07/2025 11:54 AM EDT) [facility] TSH 1.110 0.270 - 4.200 uIU/mL 08/08/2025 12:13 AM EDT [facility] Blood Structure of right upper limb / Unknown Venipuncture / Unknown 08/07/2025 11:54 AM EDT 08/07/2025 11:54 AM EDT Hugh FLORES LAB BLOOD ORDERABLES Fi nal Result [facility]
[address] [place] [address], * T4, Free (08/07/2025 11:54 AM EDT) Free T4 1.32 0.92 - 1.68 ng/dL 08/08/2025 12:13 AM EDT [facility] Blood Structure of right upper limb / Unknown Venipuncture / Unknown 08/07/2025 11:54 AM EDT 08/07/2025 11:54 AM EDT Hugh FLORES LAB BLOOD ORDERABLES Fi nal Result [facility]
[address] [place] [address], * Lipid Panel (08/07/2025 11:54 AM EDT) Total Cholesterol 147 0 - 200 mg/dL 08/08/2025 12:11 AM EDT [facility] Triglycerides 38 0 - 150 mg/dL 08/08/2025 12:11 AM EDT [facility] HDL Cholesterol 57 40 - 60 mg/dL 08/08/2025 12:11 AM EDT [facility] LDL Cholesterol 81 0 - 100 mg/dL 08/08/2025 12:11 AM EDT [facility] VLDL Cholesterol 9 5 - 40 mg/dL 08/08/2025 12:11 AM EDT [facility] LDL/HDL Ratio 1.45 08/08/2025 12:11 AM EDT [facility] Blood Structure of right upper limb / Unknown Venipuncture / Unknown 08/07/2025 11:54 AM EDT 08/07/2025 11:54 AM EDT Narrative [facility] - 08/08/2025 12:11 AM [...] LDL-C calculation. Hugh FLORES LAB BLOOD ORDERABLES nal Result [facility]
[address] [place] [address], from Last 3 Months Insurance [facility] Care Teams Valve Tester Relationship Specialty Start Date End Date Hugh Galicia PA [address] [facility] [facility] [address] [place] [address] PCP - General Family Medicine 08/07/25
--- OUTSIDE RECORDS SUMMARY | 2025-09-26 14:31 | XMS_ITS | Encounter Summary ---
Author Organization [facility] Address [address] [place] [address] Care Team Providers Care Calender Machine Operator Helper Name Role Phone Kenny Borrego MD Primary Care Provider [phone] Reason for Visit * Reason Onset Date Comments Animal Bite 04/15/2020 Encounter Details Date Type Department Care Team (Late st Contact Info) Description 04/15/2020 Nurse Triage [facility] Call Center [address] [facility] [address] [place] [address] Mirela Galvan RN Animal Bite Social History Tobacco Use Types Packs/Day Years Used Date Smoking Tobacco: Passive Smo ke Exposure - Never Smoker Smokeless Tobacco: Never Alcohol Use Standard Drinks/Week Comments Never 0 (1 standard drink = 0.6 oz pur e alcohol) AUDIT-C Answer Date Recorded Frequency of Alcohol Consumption Never 05/27/2019 Average Number of Drinks Not on file 019 Frequency of Binge Drinking Not on file 12/2018 Comments No Sex and Gender Information Value Date Recorded Sex Assigned at Not on file Legal Sex Female 10:37 PM EST Gender Identity Not on file Sexual Orientation Not on file COVID-19 Exposure Response Date Recorded In the last month, have you been in contact with someone who was confirmed or suspected to have Coronavirus / COVID-19? No / Unsure 04/15/2020 3:22 PM EDT documented as of this encounter Miscellaneous Notes * Telephone Encounter - Mirela Galvan RN - 04/15/2020 2:05 PM EDT Reason for Disposition Cut or puncture that's too small to irrigate (< 1/8 inch or 3 mm) (Exception: on the face) Answer Assessment - Initial Assessment Questions 1. ANIMAL: What type of animal caused the bite? Is the injury from a bite or a claw? If the animal is a dog or a cat, ask: Was it a pet or a stray? Was the animal acting sick? Dog bite. Neighbors dog. Unaware if dog is up to date on vaccines 2. LOCATION: Where is the bite located? Lower leg 3. SIZE: How big is the bite? What does it look like? Puncture with bruise 4. WHEN: When did the bite happen? (Minutes or hours ago) today 5. TETANUS: When was the last tetanus booster? 2016 6. RABIES VACCINE: For dog or cat bites, ask: Do you know if the pet is vaccinated against rabies? unsure 7. CHILD'S APPEARANCE: How sick is your child acting? What is he doing right now? If asleep, ask: How was he acting before he went to sleep? Mom not with patient Protocols used: ANIMAL BITE-P-AH documented in this encounter Plan of Treatment Not on file documented as of this encounter Visit Diagnoses Not on filedocumented in this encounter Additional Health Concerns Infection Onset Date Last Indicated Resolved Time Influenza A 09/30/2022 09/30/2022 10/10/2022 4:31 AM EST COVID-19 10/29/2023 10/29/2023 11/12/2023 4:30 AM EST documented as of this encounter Care Teams Calender Machine Operator Helper Relationship Specialty Start Date End Date Kenny Borrego MD [address] [place] [id number] PCP - General Family Medicine 10/01/23 documented as of this encounter
--- OUTSIDE RECORDS SUMMARY | 2025-09-26 14:31 | XMS_ITS | Encounter Summary ---
[facility] Address [address] [place] [address] Care Team Providers Care Manager Decision Support Name Role Phone Hugh Galicia Primary Care Provider Encounter Details Date Type Department Care Team (Late st Contact Info) Description 08/09/2025 Results Follow-Up [facility] FAMILY MEDICINE [address] [address] Hugh Galicia PA [address] [place] [address] Social History Tobacco Use Types Packs/Day Years [...] on file documented as of this encounter Miscellaneous Notes * Telephone Encounter - Hugh Galicia PA - 08/09/2025 2:17 PM EDT lab documented in this encounter Plan of Treatment Upcoming Encounters Date Type Department Care Team (Late st Contact Info) Description 12/21/2025 10:00 AM EST Office Visit [facility] OBGYN [address] [facility] [address] [place] [address] Delia Kirkland APRN [address] [facility] [address] [place] [address] documented as of this encounter Visit Diagnoses Not on filedocumented in this encounter Care Teams Manager Decision Support Relationship Specialty Start Date End Date Hugh Galicia PA [address] [facility] [place] [address] PCP - General Family Medicine 08/07/25 documented as of this encounter
--- OUTSIDE RECORDS SUMMARY | 2025-09-26 14:31 | XMS_ITS | Encounter Summary ---
[facility] Organization [facility] Address [address] [place] [address] Care Team Providers Care Chemical Compounder Helper Name Role Phone Hugh Galicia Primary Care Provider Encounter Details Date Type Department Care Team (Late st Contact Info) Description 09/14/2025 Telephone [facility] MEDICINE [address] [place] [address] Michael Roque MD [address] [facility] [address] [place] [address] Social History Tobacco Use Types Packs/Day Years [...] encounter Miscellaneous Notes * Telephone Encounter - Michael Roque MD - 09/14/2025 2:18 PM EST I believe this is the first instance of instability in her left knee. Confirm that for me. Find a time for Wednesday that I can call and talk with her further. For the weekend, ice and take anti-inflammatories to keep any swelling down as much as possible. * Telephone Encounter - Lizette Hoyos RegSched Rep - 09/14/2025 12:46 PM EST Patient called in stating she had a dislocation of the Left Knee today, she said she is still having problems with it popping and the knee is still unstable on both sides after 1 week of Pt. She justwanted to keep Dr Roque Updated on her progress so far. Please advise documented in this encounter Plan of Treatment Upcoming Encounters Date Type Department Care Team (Late st Contact Info) Description 12/21/2025 10:00 AM EST Office Visit [facility] OBGYN [address] [facility] [address] [place] [address] Delia Kirkland APRN [address] [facility] [address] [place] [id number] documented as of this encounter Visit Diagnoses Not on filedocumented in this encounter Care Teams Chemical Compounder Helper Relationship Specialty Start Date End Date Hugh Galicia PA [address] [facility] [address] [place] [address] PCP - General Family Medicine 08/07/25 documented as of this encounter
--- OUTSIDE RECORDS SUMMARY | 2025-09-26 14:31 | XMS_ITS | Encounter Summary ---
Author Organization [facility] Address [address] [place] [address] Care Team Providers Care Handstitching Machine Collar Feller Name Role Phone Hugh Galicia Primary Care Provider Encounter Details Date Type Department Care Team (Latest Contact Info) Description 09/03/2025 Travel Social History Tobacco Use Types Packs/Day [...] documented as of this encounter Functional Status * Calculated C-SSRS Risk Score (Lifetime/Recent) Answer Date of Assessment Author No Risk Indicated 09/03/2025 2:20 PM EST Margaret Fields RN * [place] Suicide Severity Rating Scale (Screener/Recent Self-Report) Question Answer Date of Assessment Author 1. Wish to be (Past 1 Month) No 025 2:20 PM EST Margaret Fields RN 2. Non-Specific Active Suici kasey Thoughts (Past 1 Month) No 09/03/2025 2:20 PM EST Tova Fields RN 6. Suicidal Behavior (Lifetime) No 2:20 PM EST Margaret Fields RN documented as of this encounter Plan of Treatment Upcoming Encounters Date Type Department Care Team (Late st Contact Info) Description 12/21/2025 10:00 AM EST Office Visit [facility] OBGYN [address] [facility] [address] [place] [address] Delia Kirkland APRN [address] [facility] [address] [place] [address] documented as of this encounter Visit Diagnoses Not on filedocumented in this encounter Care Teams Handstitching Machine Collar Feller Relationship Specialty Start Date End Date Hugh Galicia PA [address] [facility] [address] [place], [place] [id number] PCP - General Family Medicine 08/07/25 documented as of this encounter
--- OUTSIDE RECORDS SUMMARY | 2025-09-26 14:31 | XMS_ITS | Encounter Summary ---
[facility] Organization [facility] Address [address] [place] [address] Care Team Providers Care Biochemist Name Role Phone Hugh Galicia Primary Care Provider Encounter Details Date Type Department Care Team (Late st Contact Info) Description 08/09/2025 Patient rounding ([facility] only) [facility] MEDICINE [address] [place] [address] [address] [place] [phone] Shy Ford RegSched Rep Social History Tobacco Use Types Packs/Day Years [...] on file documented as of this encounter Progress Notes * Shy Ford RegSched Rep - 08/09/2025 3:21 PM EDT A [facility] My-Chart message has been sent to the patient for PATIENT ROUNDING documented in this encounter Plan of Treatment Upcoming Encounters Date Type Department Care Team (Late st Contact Info) Description 12/21/2025 10:00 AM EST Office Visit [facility] OBGYN [address] [facility] [address] [place] [address] Delia Kirkland, BEAMING MACHINE OPERATOR [address] [facility] [address] [place], [place] [id number] documented as of this encounter Visit Diagnoses Not on filedocumented in this encounter Care Teams Biochemist Relationship Specialty Start Date End Date Hugh Galicia PA [address] [facility] [address] [place], [place] [id number] PCP - General Family Medicine 08/07/25 documented as of this encounter
--- OUTSIDE RECORDS SUMMARY | 2025-09-26 14:31 | XMS_ITS | Encounter Summary ---
[facility] Address [address] [place] [address] Care Team Providers Care Fingerprint Technician Name Role Phone Hugh aGlicia Primary Care Provider Encounter Details Date Type Department Care Team (Latest Contact Info) Description 09/25/2025 Travel Social History Tobacco Use Types Packs/Day Years Used Date Smoking Tobacco: Never Passive Smoke Exposure: Never Smokeless Tobacco: Never Alcohol Use Standard [...] Description 12/21/2025 10:00 AM EST Office Visit [facility] O[facility]YN [address] [facility] [address] [place] [address] Delia Kirkland APRN [address] [facility] [address] [place] [address] documented as of this encounter Visit Diagnoses Not on filedocumented in this encounter Care Teams Fingerprint Technician Relationship Specialty Start Date End Date Hugh Galicia PA [address] [facility] [address] [place] [address] PCP - General Family Medicine 08/07/25 documented as of this encounter
--- OUTSIDE RECORDS SUMMARY | 2025-09-26 14:31 | XMS_ITS | Clinical Summary ---
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 Immunizations Immunization Administration Dates Next Due DTaP 09/26/2007, 6,03/30/2006,01/26 DTaP/IPV (QUADRACEL/KINRIX) 07/06/2011 HPV-9 Valent (Gardasil) 12/04/2019,03/17/2017 Hep B, Ped/Adolescent (ENGERIX-B/RECOMBIVAX HB) 12/03/2006,05/28/2006,2005 Hepatitis A- Ped (VAQTA/HAVRIX) 12/04/2019,03/17 Hib, Unspecified Formulation 03/03/2007, 05/28/2006,03/30/2006,01/26 IPV (POLIOVAX) 09/26/2007,03/30/2006,01/26/2006 Influenza quad (FluLaval,FluZone,Fluarix,Afluria,Flub lanc) 60 mcg/0.5 mL IM 09/23/2020,08/29/2020,07/27/2019 Influenza quad pediatric (Fl uZone) 30 mcg/0.25 mL IM (PF) 07/27/2019,07/29/2018,08/26/2017 MMR (MMR II) 07/06/2011 MMRV (PROQUAD) 12/03/2006 Meningococcal Group A,C,Y,W1 35 (MENVEO) 03/17/2017 Pneumococcal Conjugate 7-Valent 03/03/20 07,05/28/2006,03/30/2006,01/26 Rotavirus Pentavalent (ROTATEQ) 05/28/2006,03/30 Tdap (ADACEL/BOOSTRIX) 03/17/2017 Varicella (VARIVAX) 07/06/2011 Social History Tobacco Use Types Packs/Day Years Used Date Smoking Tobacco: Never Passive Smoke Exposure: Yes Smokeless Tobacco: Never Tobacco Cessation:Counseling Given: Not [...] Sign Reading Time Taken Comments Blood Pressure 108/70 10/29/2023 5:33 PM EST Pulse 87 10/29/2023 5:33 PM EST Temperature 37.5 C (99.5 F) 10/29/2023 5:33 PM EST Respiratory Rate 20 10/29/2023 5:33 PM EST Oxygen Saturation 98% 10/29/2023 5:33 PM EST Inhaled Oxygen Concentration - - Weight 57.8 kg (127 lb 6.4 oz) 10/29/2023 5:33 P M EST Height 160 cm (5' 3 ) 10/20/2023 12:24 PM EST Body Mass Index - - Plan of Treatment Health Maintenance Due Date Last Done Comments Well Child Check Annual (3-21 years) 11/18/2016 Meningococcal B Vaccines (1 of 2 - Standard) 2021 Influenza Vaccine(s) (#1) 06/25/20252019, 08/29/2020, 07/27/2019, Additional history exists Giufbuo-Xjlvgdwdrf-Pbfmakwyc Vaccines (7 - Td or Tdap) 03/17/2027 03/17/2017, 07/06/2011, 09/26/2007, Additional history exists Shingles Vaccine (Non-Medicare; Age 50+ or All Ages Risk Series) (1 of 2) 2055 RSV for patients and patients 60yrs or older (1 - 1-dose 75+ series) 2080 Hepatitis B Vaccines Completed 12/03/2006, 05/28/2006, 2005 Hib Vaccines Completed 03/03/2007, 01/2006, 03/30/2006, Additional history exists Pneumococcal Vaccine (Pediatric Routine or All Ages Risk Series) Aged Out 03/03/2007, 05/28/2006, 03/30/2006, Additional history exists No longer eligible based on patient's age to complete this topic Meningococcal (MCV4) Vaccines Aged Out 03/17/2017 No longer eligible based on patient's age to complete this topic HPV Vaccines Completed 12/04/2019, 03/17/2017 Insurance [facility] EMPLOYEES [facility]/[employer] [facility] EM[employer]YEES [facility]/Right [employer] [employer] Care Teams Computer Game Tester Relationship Specialty Start Date End Date Kenny Borrego MD [address] [place] [address], [place] [id number] PCP - General Family Medicine 10/01/23
--- OUTSIDE RECORDS SUMMARY | 2025-09-26 14:31 | XMS_ITS | Encounter Summary ---
Author Organization [facility] Address [address] [place] [phone] Care Team Providers Care Title I Assistant Name Role Phone Hugh Galicia Primary Care Provider Reason for Visit * Reason Onset Date Comments REFERRAL 08/22/2025 Encounter Details Date Type Department Care Team (Late st Contact Info) Description 08/22/[address] [facility] FAMILY MEDICINE [address] [facility] [address] [place] [address] Hugh Galicia PA [address] [facility] [address] [place] [phone] REFERRAL Social History Tobacco Use Types Packs/Day Years [...] encounter Miscellaneous Notes * Telephone Encounter - Edita Tellez RegSched Rep - 08/22/2025 11:03 AM EDT Faxing gore stitcher to [facility] per pt request. * Telephone Encounter - Shagufta Muniz MA - 08/22/2025 9:41 AM EDT Caller: Adilene Alvarez Relationship: Self Best call back number: [phone] What is the medical concern/diagnosis: POSSIBLE ENDOMETRIOSIS What specialty or service is being requested: [facility] What is the provider, practice or medical service name: [facility] MICHEL[facility]UETA [facility] What is the office location: [facility] Physician Office Building [address] [place] [address] [place] [address] What is the office phone number: [phone] Any additional details: PLEASE SEND REFERRAL TO [facility] documented in this encounter Plan of Treatment Upcoming Encounters Date Type Department Care Team (Late st Contact Info) Description 12/21/2025 10:00 AM EST Office Visit [facility] OBGYN [address] [facility] [address] [place] [address] Delia Kirkland APRN [address] [facility] [address] [place] [address] documented as of this encounter Visit Diagnoses Not on filedocumented in this encounter Care Teams Title I Assistant Relationship Specialty Start Date End Date Hugh Galicia PA [address] [facility] [address] [place] [address] PCP - General Family Medicine 08/07/25 documented as of this encounter
--- OUTSIDE RECORDS SUMMARY | 2025-09-26 14:31 | XMS_ITS | Encounter Summary ---
[facility] Address [address] [place] [address] Care Team Providers Care Belt Builder Helper Name Role Phone Hugh Galicia Primary Care Provider Encounter Details Date Type Department Care Team (Latest Contact Info) Description 08/21/2025 Travel Social History Tobacco Use Types Packs/Day [...] Description 12/21/2025 10:00 AM EST Office Visit [facility] O[facility]YN [address] [facility] [address] [place] [address] Delia Kirkland APRN [address] [place] [address] documented as of this encounter Visit Diagnoses Not on filedocumented in this encounter Care Teams Belt Builder Helper Relationship Specialty Start Date End Date Hugh Galicia PA [address] [place] [address] PCP - General Family Medicine 08/07/25 documented as of this encounter
--- OUTSIDE RECORDS SUMMARY | 2025-09-26 14:31 | XMS_ITS | Encounter Summary ---
[facility] Address [address] [place] [address] Care Team Providers Care Dry Chain Offbearer Name Role Phone Hugh Galicia Primary Care Provider Reason for Visit * Reason Onset Date Comments Advice Only 08/22/2025 Encounter Details Date Type Department Care Team (Late st Contact Info) Description 08/22/2025 Telephone [facility] FAMILY MEDICINE [address] [facility] [address] [place] [address] Hugh Galicia PA [address] [facility] [address] [place] [phone] Advice Only Social History Tobacco Use Types Packs/Day Years [...] Author No Risk Indicated 09/03/2025 2:20 PM Margaret Romero RN * [place] Suicide Severity Rating Scale (Screener/Recent Self-Report) Question Answer Date of Assessment Author 1. Wish to be (Past 1 Month) No 025 2:20 PM Margaret Romero RN 2. Non-Specific Active Suici kasey Thoughts (Past 1 Month) No 09/03/2025 2:20 PM Tova Romero RN 6. Suicidal Behavior (Lifetime) No 2:20 PM Margaret Romero RN documented as of this encounter Miscellaneous Notes * Telephone Encounter - Nohemi Benton MA - 08/22/2025 9:56 AM EDT She was seen yesterday but didn't mention anything to me about these symptoms. * Telephone Encounter - Shagufta Muniz MA - 08/22/2025 9:45 AM EDT Caller: Adilene Alvarez Relationship: SELF Best call back number: [phone] What is your medical concern? SHARP PIN AND NEEDLES FEELING IN BOTTOM OF BOTH FEET How long has this issue been going on? PAST 72 HOURS, BUT HAS WORSEN WITHIN THE PAST 24 HOURS Is your provider already aware of this issue? NO Have you been treated for this issue? NO REQUESTING CALL BACK documented in this encounter Plan of Treatment Upcoming Encounters Date Type Department Care Team (Late st Contact Info) Description 12/21/2025 10:00 AM EST Office Visit [facility] OBGYN [address] [facility] [address] [place] [address] Delia Kirkland APRN [address] [facility] [address] [place] [address] documented as of this encounter Visit Diagnoses Not on filedocumented in this encounter Care Teams Dry Chain Offbearer Relationship Specialty Start Date End Date Hugh Galicia PA [address] [facility] [address] [place] [address] PCP - General Family Medicine 08/07/25 documented as of this encounter
--- OUTSIDE RECORDS SUMMARY | 2025-09-26 14:31 | XMS_ITS | Encounter Summary ---
[facility] Address [address] [place] [address] Care Team Providers Care Side Door Man Name Role Phone Hugh Galicia Primary Care Provider Reason for Visit * Reason Onset Date Comments Rapid Heart Rate 09/03/2025 Encounter Details Date Type Department Care Team (Late st Contact Info) Description 09/03/2025 Telephone [facility] FAMILY MEDICINE [address] [facility] [address] [place] [address] Hugh Galicia PA [address] [facility] [address] [place] [address] Rapid Heart Rate Social History Tobacco Use Types Packs/Day Years [...] Encounter - Edita Tellez RegSched Rep - 09/03/2025 12:16 PM EST Pt called reporting chest pain, shortness of breath, and racing heartbeat about every 30 seconds rising to 120s then dropping to 60s accompanied with some nausea and unsteadiness in her legs. Spell has been going to about 2 hours, denies any stressors at this time or anytime recently. Hx of chest pain but not heart racing. Urged pt to go to the ER or at least urgent care to have her heart rhythm checked. Urgent care would then advise to ER if needed. Pt is agreeable to plan and is very close [place] on [facility] [address] documented in this encounter Plan of Treatment Upcoming Encounters Date Type Department Care Team (Late st Contact Info) Description 12/21/2025 10:00 AM EST Office Visit [facility] OBGYN [address] [facility] [address] [place] [phone] Delia Kirkland APRN [address]00 [facility] [address] [place] [address] documented as of this encounter Visit Diagnoses Not on filedocumented in this encounter Care Teams Side Door Man Relationship Specialty Start Date End Date Hugh Galicia PA [address] [facility] [address] [place] [address] PCP - General Family Medicine 08/07/25 documented as of this encounter
--- OUTSIDE RECORDS SUMMARY | 2025-09-26 14:31 | XMS_ITS | Encounter Summary ---
[facility] Address [address] [place] [address] Care Team Providers Care Trim Machine Operator Name Role Phone Hugh Galicia Primary Care Provider Encounter Details Date Type Department Care Team (Latest Contact Info) Description 08/30/2025 Travel Social History Tobacco Use Types Packs/Day [...] Description 12/21/2025 10:00 AM EST Office Visit [facility] OBGYN [address] [facility] [address] [place] [address] Delia Kirkland APRN [address] [place] [address] documented as of this encounter Visit Diagnoses Not on filedocumented in this encounter Care Teams Trim Machine Operator Relationship Specialty Start Date End Date Hugh Galicia PA [address] [place] [address] PCP - General Family Medicine 08/07/25 documented as of this encounter
--- NOTE | 2025-09-26 16:00 | US_ITS ---
PROCEDURE: US TRANSVAGINAL CLINICAL INDICATION: abnormal uterine bleeding COMPARISON: No exams were available for comparison FINDINGS: Transvaginal sonographic images of the pelvis were obtained. UTERUS: 7.1cm x 4.4cmx 2.6 cm anteverted with a combined endometrial thickness of 5.8mm. The endometrium appears trilaminar. LEFT OVARY: 4.4cmx2.6 cmx2.3cm with a volume of 13.9ml. There are multiple small peripheral follicles giving the ovary a polycystic appearance. RIGHT OVARY: 4.1cmx 2.7 cmx2.6 cm. With a volume of 15ml. There are multiple small peripheral follicles giving the ovary a polycystic appearance. There is a dominant follicle measuring 1.4 cm in size. Both ovaries are seen and appear polycystic. Doppler flow to both ovaries are seen. There is no fluid in the cul-de-sac. IMPRESSION: 1. Anteverted uterus normal in shape and size. The endometrium appears normal and trilaminar. 2. Both ovaries have a polycystic appearance with multiple small peripheral follicles. The right ovary has a dominant follicle measuring 1.4 cm in size. 3. No fluid in the cul-de-sac. Dictated by: Larry Sotomayor MD 09/26/2025 16:02 Larry Sotomayor MD in [facility] 09/26/2025 16:02
== END 2025-09-26 23:59 | disposition home or self-care (01) ==
LOC: RAD 14:28
PROVIDERS: PCP Family Medicine; Visit Provider Obstetrics & Gynecology
DX: N85.4 Malposition of uterus (principal); N83.02 Follicular cyst of left ovary; N83.01 Follicular cyst of right ovary; N93.9 Abnormal uterine and vaginal bleeding, unspecified; N64.4 Mastodynia; N63.0 Unspecified lump in unspecified breast
CPT/HCPCS: 76641; 76830